=== PATIENT | female | born 1950 | race Caucasian/White ===

== ENCOUNTER 2017-11-24 04:34 | Inpatient (IN) | payer OTHER ==
[2017-11-24] MEDS ORDERED: LEVALBUTEROL (NEB) 1.25 MG/0.5 ML AMP (04:50)
[2017-11-24] MEDS ORDERED: IPRATROPIUM (NEB) 0.5 MG/2.5 ML AMP (04:50)
[2017-11-24] MEDS: IPRATROPIUM (NEB) 0.5 MG/2.5 ML AMP INH (05:03)
[2017-11-24] MEDS: LEVALBUTEROL (NEB) 1.25 MG/0.5 ML AMP INH (05:03)
[2017-11-24] MEDS: METHYLPREDNISOLONE 125 MG INJ IV (05:27)
[2017-11-24 05:28] LABS: ADD MAN DIFF? NO
[2017-11-24 05:30] LABS: BASOPHILS % 0.3 % (0.0-2.0); EOSINOPHILS # 0.1 10^3/ul (0.0-0.5); EOSINOPHILS % 1.7 % (0.0-7.0); HEMATOCRIT 33.4 % (37.0-47.0); HEMOGLOBIN 10.9 g/dl (12.0-16.0); LYMPHOCYTES # 1.4 10^3/ul (0.8-2.9); LYMPHOCYTES % 19.7 % (15.0-51.0); MEAN CORPUSCULAR HEMOGLOBIN 31.7 pg (29.0-33.0); MEAN CORPUSCULAR HGB CONC 32.6 g/dl (32.0-37.0); MEAN CORPUSCULAR VOLUME 97.1 fl (82.0-101.0); MONOCYTE # 0.5 10^3/ul (0.3-0.9); MONOCYTES % 7.7 % (0.0-11.0); NEUTROPHIL # 4.8 10^3/ul (1.6-7.5); NEUTROPHILS % 69.6 % (39.0-77.0); PLATELET COUNT 248 10^3/UL (140-415); RED BLOOD COUNT 3.44 10^6/ul (4.20-5.40); RED CELL DISTRIBUTION WIDTH 15.2 % (11.5-14.5)
[2017-11-24 05:30] LABS: WHITE BLOOD COUNT 6.9 10^3/ul (4.8-10.8)
[2017-11-24] MEDS: MAGNESIUM SULFATE 2 GM/50 ML 50 ML IVPB (05:38)
[2017-11-24 05:49] LABS: INR 0.85; PROTIME 11.7 Sec (11.9-14.9); PT RATIO 0.9
[2017-11-24 05:50] LABS: LACTIC ACID 0.9 mmol/L (0.5-2.0)
[2017-11-24 05:50] LABS: PARTIAL THROMBOPLASTIN TIME 26.6 Sec (25.0-35.0)
[2017-11-24 05:52] LABS: ALANINE AMINOTRANSFERASE 31 IU/L (13-69); ALBUMIN/GLOBULIN RATIO 1.25; ALKALINE PHOSPHATASE 77 IU/L (42-121); ANION GAP 9 (8-16); ASPARTATE AMINO TRANSFERASE 17 IU/L (15-46); BILIRUBIN,INDIRECT 0.5 mg/dl (0-1.1); BILIRUBIN,TOTAL 0.5 mg/dl (0.2-1.3); BLOOD UREA NITROGEN 8 mg/dl (7-20); CALCIUM 8.2 mg/dl (8.4-10.2); CARBON DIOXIDE 34 mmol/L (21-31); CHLORIDE 100 mmol/L (97-110); CREATININE 0.44 mg/dl (0.44-1.00); GLUCOSE 93 mg/dl (70-220); SODIUM 139 mmol/L (135-144); TOTAL PROTEIN 5.4 g/dl (6.1-8.1)
[2017-11-24 06:02] LABS: TROPONIN-I 0.018 ng/ml (0.000-0.120)
[2017-11-24] MEDS: LEVOFLOXACIN 750MG/D5W (PMX) 150 ML IVPB (06:07)
[2017-11-24 07:06] LABS: ADD UMIC NO; UR ASCORBIC ACID NEGATIVE (NEGATIVE); UR BILIRUBIN (Dip) NEGATIVE (NEGATIVE); UR BLOOD (Dip) NEGATIVE (NEGATIVE); UR CLARITY CLEAR (CLEAR); UR COLOR YELLOW (YELLOW); UR GLUCOSE (Dip) NEGATIVE (NEGATIVE); UR KETONES (Dip) NEGATIVE (NEGATIVE); UR LEUKOCYTE ESTERASE (Dip) NEGATIVE Leu/ul (NEGATIVE); UR NITRITE (Dip) NEGATIVE (NEGATIVE); UR SPECIFIC GRAVITY (Dip) 1.008 (1.003-1.030); UR TOTAL PROTEIN (Dip) NEGATIVE (NEGATIVE); UR UROBILINOGEN (Dip) NEGATIVE (NEGATIVE)
[2017-11-24] MEDS ORDERED: SALMETEROL/FLUTICASONE 100/50 INHA INH (09:00)
[2017-11-24] MEDS ORDERED: ALBUTEROL HFA 8 GM INHALER INH (09:00)
[2017-11-24] MEDS: ARFORMOTEROL TARTRATE 15MCG/2 ML AMP INH ×2 (09:45→20:21)
[2017-11-24] MEDS: BUDESONIDE (NEB) 0.5MG/2ML AMP INH ×2 (09:45→20:12)
[2017-11-24] MEDS: TIOTROPIUM 18 MCG CAPSULE INHA DEV INH (15:06)
[2017-11-24] MEDS ORDERED: morphine 2 MG INJ IV (16:00)
[2017-11-24] MEDS ORDERED: NACL 0.9% 3 ML SYG IV (16:00)
[2017-11-24] MEDS ORDERED: MAGNESIUM HYDROXIDE 30ML CUP PO (16:00)
[2017-11-24] MEDS ORDERED: HYDROCODONE/APAP (5/325) TAB PO (16:00)
[2017-11-24] MEDS ORDERED: DOCUSATE SODIUM 100 MG CAP PO (16:00)
[2017-11-24] MEDS ORDERED: NITROGLYCERIN (SL) 0.4 MG TAB SL (16:00)
[2017-11-24] MEDS ORDERED: ZOLPIDEM 5 MG TAB PO ×2 (16:00)
[2017-11-24] MEDS ORDERED: ACETAMINOPHEN 325 MG TAB PO (16:00)
[2017-11-24] MEDS ORDERED: ONDANSETRON 4 MG INJ IV (16:00)
[2017-11-24 19:31] LABS: TROPONIN-I 0.012 ng/ml (0.000-0.120)
[2017-11-24] MEDS: traZODone 50 MG TAB PO (20:39)
[2017-11-24] MEDS ORDERED: VANCOMYCIN IV PER PHARMACY XX (22:00)
[2017-11-24] MEDS ORDERED: VANCOMYCIN 1.25 GM in SOD CHLORIDE 0.9% 250 ML IVPB (22:30)
[2017-11-24] MEDS: VANCOMYCIN 1.25 GM in SOD CHLORIDE 0.9% 250 ML IVPB (23:30)
[2017-11-25] MEDS: ALBUTEROL/IPRATROPIUM (NEB) 3 ML AMP HHN ×2 (00:13→05:48)
[2017-11-25 01:17] LABS: TROPONIN-I < 0.010 ng/ml (0.000-0.120)
[2017-11-25] MEDS: BUDESONIDE (NEB) 0.5MG/2ML AMP INH (08:00)
[2017-11-25] MEDS: FAMOTIDINE 20 MG TAB PO ×2 (08:30→08:35)
[2017-11-25] MEDS: predniSONE 5 MG TAB PO (08:30)
[2017-11-25] MEDS: MONTELUKAST 10 MG TAB PO (08:30)
[2017-11-25] MEDS: traZODone 50 MG TAB PO ×2 (08:30→12:28)
[2017-11-25] MEDS: FUROSEMIDE 20 MG TAB PO (08:31)
[2017-11-25] MEDS: ARFORMOTEROL TARTRATE 15MCG/2 ML AMP INH (09:00)
[2017-11-25 09:11] LABS: ADD MAN DIFF? NO
[2017-11-25 09:21] LABS: BASOPHILS % 0.1 % (0.0-2.0); EOSINOPHILS % 0.3 % (0.0-7.0); HEMATOCRIT 36.3 % (37.0-47.0); HEMOGLOBIN 11.6 g/dl (12.0-16.0); LYMPHOCYTES # 1.2 10^3/ul (0.8-2.9); LYMPHOCYTES % 12.4 % (15.0-51.0); MEAN CORPUSCULAR HEMOGLOBIN 31.1 pg (29.0-33.0); MEAN CORPUSCULAR VOLUME 97.3 fl (82.0-101.0); MEAN PLATELET VOLUME 9.3 fl (7.4-10.4); MONOCYTE # 0.8 10^3/ul (0.3-0.9); MONOCYTES % 7.9 % (0.0-11.0); NEUTROPHIL # 7.7 10^3/ul (1.6-7.5); NEUTROPHILS % 78.7 % (39.0-77.0); PLATELET COUNT 282 10^3/UL (140-415); RED BLOOD COUNT 3.73 10^6/ul (4.20-5.40); RED CELL DISTRIBUTION WIDTH 15.2 % (11.5-14.5)
[2017-11-25 09:21] LABS: WHITE BLOOD COUNT 9.8 10^3/ul (4.8-10.8)
[2017-11-25 09:30] LABS: HEMOGLOBIN A1C 5.5 % (0-5.9)
[2017-11-25 09:37] LABS: ANION GAP 9 (8-16); BLOOD UREA NITROGEN 13 mg/dl (7-20); CALCIUM 8.5 mg/dl (8.4-10.2); CARBON DIOXIDE 32 mmol/L (21-31); CHLORIDE 104 mmol/L (97-110); CHOL/HDL RATIO 2.7 RATIO; CHOLESTEROL 203 mg/dl (100-200); CREATININE 0.42 mg/dl (0.44-1.00); GLUCOSE 96 mg/dl (70-220); HDL CHOLESTEROL 74 mg/dl (35-98); LDL CHOLESTEROL,CALCULATED 117 mg/dl; PHOSPHORUS 3.6 mg/dl (2.5-4.9); POTASSIUM 4.3 mmol/L (3.5-5.1); SODIUM 141 mmol/L (135-144); TRIGLYCERIDES 61 mg/dl (0-149)
[2017-11-25] MEDS: TIOTROPIUM 18 MCG CAPSULE INHA DEV INH (10:48)
[2017-11-25] MEDS: ALBUTEROL 0.083% (NEB) 2.5 MG/3 ML AMP HHN (14:08)
[2017-11-25] MEDS: NICOTINE (21 MG/24 HR) PATCH TRANSDERM (15:48)
[2017-11-25] MEDS ORDERED: VANCOMYCIN 750 MG in DEXTROSE 5% 150 ML IVPB (18:00)
[2017-11-25] MEDS ORDERED: VANCOMYCIN 1 GM 250 ML IVPB (22:00)
[2017-11-26] MEDS ORDERED: ASPIRIN 81 MG TAB PO (09:00)
== END 2017-11-25 18:00 | disposition home health service (06) | DRG 192 ==
LOC: E/R 04:34 → TEL 05:54
DX: J44.1 Chronic obstructive pulmonary disease with (acute) exacerbation (principal); Z72.0 Tobacco use; R07.89 Other chest pain; D63.8 Anemia in other chronic diseases classified elsewhere
CPT/HCPCS: 36415; 71045; 80048; 80053; 80061; 81003; 83036; 83605; 83735; 84100; 84484; 85025; 85610; 85730; 87040; 87086; 93005; 94640; 94644; 94664; 96374; 96375; 97161; 99291-25

== ENCOUNTER 2018-01-13 17:45 | Inpatient (IN) | payer OTHER ==
[2018-01-13] MEDS: ALBUTEROL 0.5% (NEB) 2.5 MG/0.5 ML AMP INH (18:06)
[2018-01-13 18:10] LABS: ADD MAN DIFF? NO
[2018-01-13 18:14] LABS: ABNORMAL IP MESSAGE 1; BASOPHILS % 0.2 % (0.0-2.0); HEMATOCRIT 36.8 % (37.0-47.0); HEMOGLOBIN 11.4 g/dl (12.0-16.0); LYMPHOCYTES # 0.5 10^3/ul (0.8-2.9); LYMPHOCYTES % 5.2 % (15.0-51.0); MEAN CORPUSCULAR HEMOGLOBIN 30.6 pg (29.0-33.0); MEAN CORPUSCULAR VOLUME 98.7 fl (82.0-101.0); MEAN PLATELET VOLUME 8.8 fl (7.4-10.4); MONOCYTE # 0.1 10^3/ul (0.3-0.9); MONOCYTES % 1.3 % (0.0-11.0); NEUTROPHIL # 8.9 10^3/ul (1.6-7.5); NEUTROPHILS % 92.9 % (39.0-77.0); PLATELET COUNT 326 10^3/UL (140-415); POSITIVE DIFF @See below; RED BLOOD COUNT 3.73 10^6/ul (4.20-5.40)
[2018-01-13 18:14] LABS: WHITE BLOOD COUNT 9.6 10^3/ul (4.8-10.8)
[2018-01-13] MEDS: AZITHROMYCIN 500MG/NS (PMX) 250 ML IVPB (18:19)
[2018-01-13] MEDS: METHYLPREDNISOLONE 125 MG INJ IV (18:19)
[2018-01-13 18:37] LABS: ANION GAP 9 (8-16); BLOOD UREA NITROGEN 12 mg/dl (7-20); CARBON DIOXIDE 35 mmol/L (21-31); CHLORIDE 101 mmol/L (97-110); CREATININE 0.49 mg/dl (0.44-1.00); GLUCOSE 131 mg/dl (70-220); POTASSIUM 4.6 mmol/L (3.5-5.1); SODIUM 140 mmol/L (135-144)
[2018-01-13 18:49] LABS: TROPONIN-I < 0.010 ng/ml (0.000-0.120)
[2018-01-13] MEDS ORDERED: ACETAMINOPHEN 325 MG TAB PO (19:30)
[2018-01-13] MEDS ORDERED: ONDANSETRON 4 MG INJ IV (19:30)
[2018-01-14] MEDS: ALBUTEROL/IPRATROPIUM (NEB) 3 ML AMP HHN ×3 (02:49→20:29)
[2018-01-14] MEDS ORDERED: NON-FORMULARY/PATIENT OWN MED (Salmeterol Xinaf-Fluticasone* (Advair*) 1 INH) INHALATION (04:30)
[2018-01-14] MEDS: ALBUTEROL HFA 8 GM INHALER INH ×5 (05:00→20:53)
[2018-01-14 05:13] LABS: ADD MAN DIFF? NO
[2018-01-14 05:18] LABS: ABNORMAL IP MESSAGE 1; BASOPHILS % 0.1 % (0.0-2.0); HEMATOCRIT 36.6 % (37.0-47.0); HEMOGLOBIN 11.3 g/dl (12.0-16.0); LYMPHOCYTES # 0.5 10^3/ul (0.8-2.9); LYMPHOCYTES % 6.5 % (15.0-51.0); MEAN CORPUSCULAR HGB CONC 30.9 g/dl (32.0-37.0); MEAN CORPUSCULAR VOLUME 97.1 fl (82.0-101.0); MEAN PLATELET VOLUME 9.1 fl (7.4-10.4); MONOCYTE # 0.2 10^3/ul (0.3-0.9); MONOCYTES % 3.3 % (0.0-11.0); NEUTROPHIL # 6.4 10^3/ul (1.6-7.5); NEUTROPHILS % 89.7 % (39.0-77.0); PLATELET COUNT 329 10^3/UL (140-415); RED BLOOD COUNT 3.77 10^6/ul (4.20-5.40); RED CELL DISTRIBUTION WIDTH 13.8 % (11.5-14.5)
[2018-01-14 05:18] LABS: WHITE BLOOD COUNT 7.2 10^3/ul (4.8-10.8)
[2018-01-14 05:25] LABS: POSITIVE DIFF @See below
[2018-01-14] MEDS: ACETAMINOPHEN 325 MG TAB PO (05:38)
[2018-01-14 05:42] LABS: ALANINE AMINOTRANSFERASE 29 IU/L (13-69); ALBUMIN 4.1 g/dl (3.3-4.9); ALBUMIN/GLOBULIN RATIO 1.78; ALKALINE PHOSPHATASE 53 IU/L (42-121); ANION GAP 10 (8-16); ASPARTATE AMINO TRANSFERASE 21 IU/L (15-46); BILIRUBIN,INDIRECT 0.3 mg/dl (0-1.1); BILIRUBIN,TOTAL 0.3 mg/dl (0.2-1.3); BLOOD UREA NITROGEN 17 mg/dl (7-20); CALCIUM 8.9 mg/dl (8.4-10.2); CARBON DIOXIDE 31 mmol/L (21-31); CHLORIDE 102 mmol/L (97-110); GLUCOSE 116 mg/dl (70-220); PHOSPHORUS 3.6 mg/dl (2.5-4.9); POTASSIUM 4.3 mmol/L (3.5-5.1); SODIUM 139 mmol/L (135-144); TOTAL PROTEIN 6.4 g/dl (6.1-8.1)
[2018-01-14] MEDS: FUROSEMIDE 20 MG TAB PO (06:00)
[2018-01-14] MEDS: FLUTICASONE/VILANTEROL 100-25 INH (06:01)
[2018-01-14] MEDS: FAMOTIDINE 20 MG TAB PO (09:00)
[2018-01-14] MEDS: SUMATRIPTAN 6 MG/0.5 ML INJ SC ×2 (09:30→18:45)
[2018-01-14] MEDS: METHYLPREDNISOLONE 125 MG INJ IV (09:34)
[2018-01-14] MEDS: traZODone 50 MG TAB PO ×3 (09:36→20:46)
[2018-01-14] MEDS: GABAPENTIN 100 MG CAP PO ×3 (09:36→20:47)
[2018-01-14] MEDS: ONDANSETRON 4 MG INJ IV ×2 (10:03→20:46)
[2018-01-14] MEDS: TIOTROPIUM 18 MCG CAPSULE INHA DEV INH (20:53)
[2018-01-14] MEDS: MONTELUKAST 10 MG TAB PO (20:56)
[2018-01-15] MEDS: ALBUTEROL HFA 8 GM INHALER INH ×6 (01:00→21:49)
[2018-01-15] MEDS: ALBUTEROL/IPRATROPIUM (NEB) 3 ML AMP HHN ×4 (01:17→16:50)
[2018-01-15] MEDS: ONDANSETRON 4 MG INJ IV ×3 (02:42→16:25)
[2018-01-15] MEDS: SUMATRIPTAN 6 MG/0.5 ML INJ SC (02:47)
[2018-01-15] MEDS: SUMATRIPTAN 50 MG TAB PO (03:58)
[2018-01-15 05:48] LABS: ADD MAN DIFF? NO
[2018-01-15 05:53] LABS: WHITE BLOOD COUNT 9.9 10^3/ul (4.8-10.8)
[2018-01-15 05:53] LABS: ABNORMAL IP MESSAGE 1; BASOPHILS % 0.1 % (0.0-2.0); HEMATOCRIT 34.4 % (37.0-47.0); HEMOGLOBIN 10.4 g/dl (12.0-16.0); LYMPHOCYTES # 0.4 10^3/ul (0.8-2.9); LYMPHOCYTES % 4.2 % (15.0-51.0); MEAN CORPUSCULAR HEMOGLOBIN 30.3 pg (29.0-33.0); MEAN CORPUSCULAR HGB CONC 30.2 g/dl (32.0-37.0); MEAN CORPUSCULAR VOLUME 100.3 fl (82.0-101.0); MEAN PLATELET VOLUME 10.6 fl (7.4-10.4); MONOCYTE # 0.5 10^3/ul (0.3-0.9); MONOCYTES % 5.2 % (0.0-11.0); NEUTROPHIL # 8.9 10^3/ul (1.6-7.5); NEUTROPHILS % 90.2 % (39.0-77.0); PLATELET COUNT 275 10^3/UL (140-415); RED BLOOD COUNT 3.43 10^6/ul (4.20-5.40); RED CELL DISTRIBUTION WIDTH 13.9 % (11.5-14.5)
[2018-01-15] MEDS: FUROSEMIDE 20 MG TAB PO (06:00)
[2018-01-15 06:12] LABS: ANION GAP 10 (8-16); BLOOD UREA NITROGEN 17 mg/dl (7-20); CALCIUM 8.7 mg/dl (8.4-10.2); CARBON DIOXIDE 29 mmol/L (21-31); CHLORIDE 104 mmol/L (97-110); CREATININE 0.58 mg/dl (0.44-1.00); GLUCOSE 114 mg/dl (70-220); POTASSIUM 4.7 mmol/L (3.5-5.1); SODIUM 138 mmol/L (135-144)
[2018-01-15 06:12] LABS: PHOSPHORUS 3.4 mg/dl (2.5-4.9)
[2018-01-15 06:20] LABS: POSITIVE DIFF @See below
[2018-01-15] MEDS: FAMOTIDINE 20 MG TAB PO (09:00)
[2018-01-15] MEDS: traZODone 50 MG TAB PO ×3 (09:59→21:47)
[2018-01-15] MEDS: METHYLPREDNISOLONE 125 MG INJ IV (09:59)
[2018-01-15] MEDS ORDERED: SUMATRIPTAN 6 MG/0.5 ML INJ SC (10:00)
[2018-01-15] MEDS: GABAPENTIN 100 MG CAP PO ×3 (10:00→21:47)
[2018-01-15] MEDS: FLUTICASONE/VILANTEROL 100-25 INH (10:01)
[2018-01-15] MEDS: SUMATRIPTAN 25 MG TAB PO ×2 (10:40→17:23)
[2018-01-15] MEDS: MONTELUKAST 10 MG TAB PO (21:48)
[2018-01-15] MEDS: TIOTROPIUM 18 MCG CAPSULE INHA DEV INH (21:50)
[2018-01-16] MEDS: ALBUTEROL/IPRATROPIUM (NEB) 3 ML AMP HHN (00:08)
[2018-01-16] MEDS: ALBUTEROL HFA 8 GM INHALER INH ×3 (01:00→08:12)
[2018-01-16] MEDS: SUMATRIPTAN 50 MG TAB PO (04:49)
[2018-01-16] MEDS: FUROSEMIDE 20 MG TAB PO (05:30)
[2018-01-16 05:37] LABS: ADD MAN DIFF? NO
[2018-01-16 05:50] LABS: BASOPHILS % 0.1 % (0.0-2.0); HEMATOCRIT 35.7 % (37.0-47.0); HEMOGLOBIN 10.7 g/dl (12.0-16.0); LYMPHOCYTES # 1.7 10^3/ul (0.8-2.9); MEAN CORPUSCULAR HEMOGLOBIN 30.1 pg (29.0-33.0); MEAN CORPUSCULAR VOLUME 100.6 fl (82.0-101.0); MEAN PLATELET VOLUME 9.5 fl (7.4-10.4); MONOCYTE # 0.9 10^3/ul (0.3-0.9); MONOCYTES % 8.2 % (0.0-11.0); NEUTROPHIL # 8.5 10^3/ul (1.6-7.5); NEUTROPHILS % 76.3 % (39.0-77.0); PLATELET COUNT 313 10^3/UL (140-415); RED BLOOD COUNT 3.55 10^6/ul (4.20-5.40); RED CELL DISTRIBUTION WIDTH 13.6 % (11.5-14.5)
[2018-01-16 05:50] LABS: WHITE BLOOD COUNT 11.1 10^3/ul (4.8-10.8)
[2018-01-16 06:09] LABS: PHOSPHORUS 2.7 mg/dl (2.5-4.9)
[2018-01-16 06:09] LABS: MAGNESIUM 1.9 mg/dl (1.7-2.5)
[2018-01-16 06:15] LABS: ANION GAP 8 (8-16); BLOOD UREA NITROGEN 16 mg/dl (7-20); CALCIUM 8.3 mg/dl (8.4-10.2); CARBON DIOXIDE 31 mmol/L (21-31); CHLORIDE 103 mmol/L (97-110); CREATININE 0.52 mg/dl (0.44-1.00); GLUCOSE 129 mg/dl (70-220); SODIUM 138 mmol/L (135-144)
[2018-01-16] MEDS: ONDANSETRON 4 MG INJ IV ×3 (08:03→21:27)
[2018-01-16] MEDS: FLUTICASONE/VILANTEROL 100-25 INH (08:08)
[2018-01-16] MEDS: METHYLPREDNISOLONE 125 MG INJ IV (08:09)
[2018-01-16] MEDS: traZODone 50 MG TAB PO ×3 (08:12→21:24)
[2018-01-16] MEDS: FAMOTIDINE 20 MG TAB PO (08:12)
[2018-01-16] MEDS: GABAPENTIN 100 MG CAP PO ×3 (08:12→21:24)
[2018-01-16] MEDS: MONTELUKAST 10 MG TAB PO (08:13)
[2018-01-16] MEDS: NICOTINE (21 MG/24 HR) PATCH TRANSDERM (11:42)
[2018-01-16] MEDS: ALBUTEROL 0.083% (NEB) 2.5 MG/3 ML AMP HHN ×3 (11:47→23:00)
[2018-01-16] MEDS ORDERED: ALBUTEROL HFA 8 GM INHALER INH (12:00)
[2018-01-16] MEDS: traMADol 50 MG TAB PO ×2 (12:02→19:12)
[2018-01-16] MEDS: TIOTROPIUM 18 MCG CAPSULE INHA DEV INH (21:41)
[2018-01-17] MEDS: traMADol 50 MG TAB PO ×4 (01:21→22:01)
[2018-01-17] MEDS: ALBUTEROL 0.083% (NEB) 2.5 MG/3 ML AMP HHN ×5 (03:01→19:57)
[2018-01-17] MEDS: ONDANSETRON 4 MG INJ IV ×2 (03:18→09:13)
[2018-01-17] MEDS: FUROSEMIDE 20 MG TAB PO (06:00)
[2018-01-17] MEDS: FAMOTIDINE 20 MG TAB PO (09:00)
[2018-01-17] MEDS: METHYLPREDNISOLONE 125 MG INJ IV (09:13)
[2018-01-17] MEDS: GABAPENTIN 100 MG CAP PO ×3 (09:13→20:34)
[2018-01-17] MEDS: traZODone 50 MG TAB PO ×3 (09:13→20:34)
[2018-01-17] MEDS: FLUTICASONE/VILANTEROL 100-25 INH (09:13)
[2018-01-17] MEDS: MONTELUKAST 10 MG TAB PO (09:14)
[2018-01-17] MEDS: NICOTINE (21 MG/24 HR) PATCH TRANSDERM (09:24)
[2018-01-17] MEDS: ONDANSETRON 4 MG TAB PO ×2 (16:21→21:35)
[2018-01-17] MEDS: ACETAMINOPHEN 325 MG TAB PO (20:30)
[2018-01-17] MEDS: TIOTROPIUM 18 MCG CAPSULE INHA DEV INH (20:38)
[2018-01-18] MEDS: traMADol 50 MG TAB PO ×2 (01:27→07:44)
[2018-01-18] MEDS: ALBUTEROL 0.083% (NEB) 2.5 MG/3 ML AMP HHN (03:31)
[2018-01-18] MEDS: FUROSEMIDE 20 MG TAB PO (05:40)
[2018-01-18] MEDS: ONDANSETRON 4 MG TAB PO (06:01)
[2018-01-18] MEDS: GABAPENTIN 100 MG CAP PO (09:23)
[2018-01-18] MEDS: MONTELUKAST 10 MG TAB PO (09:23)
[2018-01-18] MEDS: FLUTICASONE/VILANTEROL 100-25 INH (09:24)
[2018-01-18] MEDS: NICOTINE (21 MG/24 HR) PATCH TRANSDERM (09:26)
[2018-01-18] MEDS: FAMOTIDINE 20 MG TAB PO (09:26)
[2018-01-18] MEDS: traZODone 50 MG TAB PO (09:28)
[2018-01-18] MEDS: ONDANSETRON 4 MG INJ IV (11:54)
== END 2018-01-18 12:30 | disposition home health service (06) | DRG 192 ==
LOC: E/R 17:45 → MS1 19:17
DX: J44.1 Chronic obstructive pulmonary disease with (acute) exacerbation (principal); Z72.0 Tobacco use; I10 Essential (primary) hypertension; G43.909 Migraine, unspecified, not intractable, without status migrainosus; D64.9 Anemia, unspecified
CPT/HCPCS: 70450; 71045; 80048; 80053; 83735; 84100; 84484; 85025; 93005; 93970; 94640; 94644; 94664; 96374; 96375; 99285-25

== ENCOUNTER 2018-01-21 10:08 | Emergency (ER) | payer OTHER ==
[2018-01-21 10:53] LABS: ADD MAN DIFF? NO
[2018-01-21 10:55] LABS: BASOPHILS % 0.1 % (0.0-2.0); EOSINOPHILS % 0.1 % (0.0-7.0); HEMATOCRIT 42.5 % (37.0-47.0); HEMOGLOBIN 12.7 g/dl (12.0-16.0); LYMPHOCYTES # 1.4 10^3/ul (0.8-2.9); LYMPHOCYTES % 13.1 % (15.0-51.0); MEAN CORPUSCULAR HEMOGLOBIN 29.7 pg (29.0-33.0); MEAN CORPUSCULAR HGB CONC 29.9 g/dl (32.0-37.0); MEAN CORPUSCULAR VOLUME 99.5 fl (82.0-101.0); MEAN PLATELET VOLUME 8.7 fl (7.4-10.4); MONOCYTE # 0.9 10^3/ul (0.3-0.9); MONOCYTES % 8.3 % (0.0-11.0); NEUTROPHIL # 8.5 10^3/ul (1.6-7.5); PLATELET COUNT 340 10^3/UL (140-415); RED BLOOD COUNT 4.27 10^6/ul (4.20-5.40); RED CELL DISTRIBUTION WIDTH 13.3 % (11.5-14.5)
[2018-01-21 10:55] LABS: WHITE BLOOD COUNT 10.9 10^3/ul (4.8-10.8)
[2018-01-21 11:12] LABS: ANION GAP 9 (8-16); BLOOD UREA NITROGEN 11 mg/dl (7-20); CALCIUM 9.2 mg/dl (8.4-10.2); CARBON DIOXIDE 38 mmol/L (21-31); CHLORIDE 97 mmol/L (97-110); CREATININE 0.51 mg/dl (0.44-1.00); GLUCOSE 93 mg/dl (70-220); POTASSIUM 3.7 mmol/L (3.5-5.1); SODIUM 140 mmol/L (135-144)
[2018-01-21 11:22] LABS: INR 0.87; PROTIME 11.9 Sec (11.9-14.9); PT RATIO 0.9
[2018-01-21 11:23] LABS: PARTIAL THROMBOPLASTIN TIME 23.4 Sec (25.0-35.0)
[2018-01-21 11:24] LABS: B-TYPE NATRIURETIC PEPTIDE 230 PG/ML (0-125); TROPONIN-I 0.011 ng/ml (0.000-0.120)
[2018-01-21] MEDS: METHYLPREDNISOLONE 125 MG INJ IV (11:29)
[2018-01-21] MEDS: DIPHENHYDRAMINE 50 MG INJ IV (11:29)
[2018-01-21] MEDS: METOCLOPRAMIDE 10 MG INJ IV (11:33)
[2018-01-21] MEDS: ALBUTEROL 0.5% (NEB) 2.5 MG/0.5 ML AMP INH (11:42)
[2018-01-21] MEDS: IPRATROPIUM (NEB) 0.5 MG/2.5 ML AMP INH (11:42)
== END 2018-01-21 21:16 | disposition home or self-care (01) ==
LOC: E/R 10:08
DX: R62.7 Adult failure to thrive (principal); J44.9 Chronic obstructive pulmonary disease, unspecified; R06.00 Dyspnea, unspecified; R51 Headache; E87.2 Acidosis; R40.2142 Coma scale, eyes open, spontaneous, at arrival to emergency department; R40.2252 Coma scale, best verbal response, oriented, at arrival to emergency department; I10 Essential (primary) hypertension; J45.901 Unspecified asthma with (acute) exacerbation; F17.210 Nicotine dependence, cigarettes, uncomplicated; Z99.81 Dependence on supplemental oxygen
CPT/HCPCS: 36415; 71045; 80048; 83880; 84484; 85025; 85610; 85730; 93005; 94644; 96374; 96375; 99285-25

== ENCOUNTER 2018-02-11 10:26 | Emergency (ER) | payer OTHER ==
[2018-02-11] MEDS: ALBUTEROL 0.5% (NEB) 2.5 MG/0.5 ML AMP INH (11:26)
[2018-02-11] MEDS: IPRATROPIUM (NEB) 0.5 MG/2.5 ML AMP INH (11:27)
[2018-02-11 12:14] LABS: ADD MAN DIFF? NO
[2018-02-11 12:17] LABS: WHITE BLOOD COUNT 12.6 10^3/ul (4.8-10.8)
[2018-02-11 12:17] LABS: BASOPHILS % 0.1 % (0.0-2.0); HEMATOCRIT 36.8 % (37.0-47.0); HEMOGLOBIN 11.2 g/dl (12.0-16.0); LYMPHOCYTES # 0.8 10^3/ul (0.8-2.9); LYMPHOCYTES % 6.1 % (15.0-51.0); MEAN CORPUSCULAR HEMOGLOBIN 28.8 pg (29.0-33.0); MEAN CORPUSCULAR HGB CONC 30.4 g/dl (32.0-37.0); MEAN CORPUSCULAR VOLUME 94.6 fl (82.0-101.0); MEAN PLATELET VOLUME 8.7 fl (7.4-10.4); MONOCYTE # 1.1 10^3/ul (0.3-0.9); NEUTROPHIL # 10.6 10^3/ul (1.6-7.5); NEUTROPHILS % 84.2 % (39.0-77.0); PLATELET COUNT 323 10^3/UL (140-415); RED BLOOD COUNT 3.89 10^6/ul (4.20-5.40)
[2018-02-11] MEDS: METHYLPREDNISOLONE 125 MG INJ IV (12:31)
[2018-02-11 12:34] LABS: BLOOD UREA NITROGEN 21 mg/dl (7-20); CALCIUM 9.1 mg/dl (8.4-10.2); CHLORIDE 92 mmol/L (97-110); CREATININE 0.56 mg/dl (0.44-1.00); GLUCOSE 92 mg/dl (70-220); POTASSIUM 4.2 mmol/L (3.5-5.1); SODIUM 137 mmol/L (135-144)
[2018-02-11 12:46] LABS: TROPONIN-I < 0.012 ng/ml (0.000-0.120)
[2018-02-11 12:48] LABS: ANION GAP 7 (8-16); CARBON DIOXIDE 42 mmol/L (21-31)
[2018-02-11] MEDS: ALBUTEROL 0.083% (NEB) 2.5 MG/3 ML AMP HHN (19:09)
== END 2018-02-11 23:27 | disposition home or self-care (01) ==
LOC: E/R 10:26
DX: J44.1 Chronic obstructive pulmonary disease with (acute) exacerbation (principal); F17.200 Nicotine dependence, unspecified, uncomplicated; I10 Essential (primary) hypertension; F17.210 Nicotine dependence, cigarettes, uncomplicated; R40.2142 Coma scale, eyes open, spontaneous, at arrival to emergency department; R40.2362 Coma scale, best motor response, obeys commands, at arrival to emergency department; R40.2252 Coma scale, best verbal response, oriented, at arrival to emergency department
CPT/HCPCS: 36415; 71045; 80048; 84484; 85025; 93005; 94644; 94664; 96374; 99285-25

== ENCOUNTER 2018-03-08 16:41 | Emergency (ER) | payer OTHER ==
[2018-03-08 17:32] LABS: ADD MAN DIFF? NO
[2018-03-08 17:40] LABS: ANION GAP 9 (8-16); BLOOD UREA NITROGEN 13 mg/dl (7-20); CARBON DIOXIDE 30 mmol/L (21-31); CHLORIDE 102 mmol/L (97-110); GLUCOSE 90 mg/dl (70-220); POTASSIUM 3.7 mmol/L (3.5-5.1); SODIUM 137 mmol/L (135-144)
[2018-03-08 17:41] LABS: BASOPHIL # 0.1 10^3/ul (0.0-0.1); BASOPHILS % 1.1 % (0.0-2.0); EOSINOPHILS # 0.1 10^3/ul (0.0-0.5); EOSINOPHILS % 1.9 % (0.0-7.0); HEMATOCRIT 29.2 % (37.0-47.0); HEMOGLOBIN 9.1 g/dl (12.0-16.0); LYMPHOCYTES # 1.7 10^3/ul (0.8-2.9); LYMPHOCYTES % 36.2 % (15.0-51.0); MEAN CORPUSCULAR HEMOGLOBIN 27.4 pg (29.0-33.0); MEAN CORPUSCULAR HGB CONC 31.2 g/dl (32.0-37.0); MEAN PLATELET VOLUME 8.6 fl (7.4-10.4); MONOCYTE # 0.7 10^3/ul (0.3-0.9); NEUTROPHIL # 2.1 10^3/ul (1.6-7.5); PLATELET COUNT 421 10^3/UL (140-415); RED BLOOD COUNT 3.32 10^6/ul (4.20-5.40); RED CELL DISTRIBUTION WIDTH 14.4 % (11.5-14.5)
[2018-03-08 17:41] LABS: WHITE BLOOD COUNT 4.7 10^3/ul (4.8-10.8)
[2018-03-08] MEDS: METOCLOPRAMIDE 10 MG INJ IV (17:45)
[2018-03-08] MEDS: DIPHENHYDRAMINE 50 MG INJ IV (17:45)
[2018-03-08] MEDS: METHYLPREDNISOLONE 125 MG INJ IV (17:45)
[2018-03-08] MEDS: HYDROmorphONE 1 MG/ML SYG IV (17:45)
[2018-03-08 17:51] LABS: TROPONIN-I < 0.012 ng/ml (0.000-0.120)
[2018-03-08] MEDS: ALBUTEROL 0.5% (NEB) 2.5 MG/0.5 ML AMP INH (17:58)
== END 2018-03-08 21:00 | disposition home or self-care (01) ==
LOC: E/R 16:41
DX: J44.1 Chronic obstructive pulmonary disease with (acute) exacerbation (principal); R40.2142 Coma scale, eyes open, spontaneous, at arrival to emergency department; R40.2252 Coma scale, best verbal response, oriented, at arrival to emergency department; R40.2362 Coma scale, best motor response, obeys commands, at arrival to emergency department; I10 Essential (primary) hypertension; F17.210 Nicotine dependence, cigarettes, uncomplicated; G43.909 Migraine, unspecified, not intractable, without status migrainosus
CPT/HCPCS: 70450; 71045; 80048; 84484; 85025; 93005; 94644; 96374; 96375; 99285-25

== ENCOUNTER 2018-03-10 00:27 | Emergency (ER) | payer OTHER ==
[2018-03-10 01:49] LABS: ADD MAN DIFF? NO
[2018-03-10 01:50] LABS: BASOPHILS % 0.3 % (0.0-2.0); EOSINOPHILS % 0.1 % (0.0-7.0); HEMATOCRIT 29.3 % (37.0-47.0); HEMOGLOBIN 9.1 g/dl (12.0-16.0); LYMPHOCYTES # 1.9 10^3/ul (0.8-2.9); LYMPHOCYTES % 23.7 % (15.0-51.0); MEAN CORPUSCULAR HEMOGLOBIN 27.2 pg (29.0-33.0); MEAN CORPUSCULAR HGB CONC 31.1 g/dl (32.0-37.0); MEAN CORPUSCULAR VOLUME 87.5 fl (82.0-101.0); MEAN PLATELET VOLUME 8.9 fl (7.4-10.4); MONOCYTES % 11.9 % (0.0-11.0); NEUTROPHIL # 5.1 10^3/ul (1.6-7.5); NEUTROPHILS % 63.7 % (39.0-77.0); PLATELET COUNT 457 10^3/UL (140-415); RED BLOOD COUNT 3.35 10^6/ul (4.20-5.40); RED CELL DISTRIBUTION WIDTH 14.6 % (11.5-14.5)
[2018-03-10 02:11] LABS: LACTIC ACID 0.6 mmol/L (0.5-2.0)
[2018-03-10 02:11] LABS: PT RATIO 0.9
[2018-03-10 02:12] LABS: ALANINE AMINOTRANSFERASE 30 IU/L (13-69); ALBUMIN 3.5 g/dl (3.3-4.9); ALBUMIN/GLOBULIN RATIO 1.45; ALKALINE PHOSPHATASE 57 IU/L (42-121); ANION GAP 10 (8-16); ASPARTATE AMINO TRANSFERASE 29 IU/L (15-46); BILIRUBIN,INDIRECT 0.1 mg/dl (0-1.1); BILIRUBIN,TOTAL 0.1 mg/dl (0.2-1.3); BLOOD UREA NITROGEN 20 mg/dl (7-20); CARBON DIOXIDE 29 mmol/L (21-31); CHLORIDE 103 mmol/L (97-110); CREATININE 0.71 mg/dl (0.44-1.00); GLUCOSE 99 mg/dl (70-220); POTASSIUM 3.4 mmol/L (3.5-5.1); SODIUM 139 mmol/L (135-144); TOTAL PROTEIN 5.9 g/dl (6.1-8.1)
[2018-03-10 02:22] LABS: TROPONIN-I < 0.012 ng/ml (0.000-0.120)
[2018-03-10 02:53] LABS: AADO2 Arterial 70.1 mmHg (7.0-24.0); Allen Test ACCEPTAB; Arterial Base Excess 3.5 mmol/L (-3.0-3); Arterial Blood Gas Oxygen Sat 96.7 mmHG (95.0-98.0); Arterial COHb 2.8 % (0.0-3.0); Arterial Fraction of Oxyhgb 93.9 % (93.0-99.0); Arterial HCO3 27.9 mmol/L (22.0-26.0); Arterial MetHb 0.1 % (0.0-1.5); Arterial Total Hemglobin 9.6 g/dl (12.0-18.0); Arterial pCO2 41.7 mmhg (35-45); MODE NASAL CANNULA; Site Right Radial
[2018-03-10 03:01] LABS: INR 0.85; PARTIAL THROMBOPLASTIN TIME 26.8 Sec (25.0-35.0); PROTIME 11.7 Sec (11.9-14.9)
[2018-03-10] MEDS: POTASSIUM CHLORIDE (SR) 20 MEQ TAB PO (04:05)
[2018-03-10] MEDS: ONDANSETRON (ODT) 4 MG TAB ODT (10:31)
== END 2018-03-10 21:45 | disposition home or self-care (01) ==
LOC: E/R 21:45
DX: J44.9 Chronic obstructive pulmonary disease, unspecified (principal); M25.512 Pain in left shoulder; E87.6 Hypokalemia; D64.9 Anemia, unspecified; I10 Essential (primary) hypertension; R42 Dizziness and giddiness; Z87.891 Personal history of nicotine dependence
CPT/HCPCS: 36415; 36600; 70450; 71045; 73030; 80053; 82803; 83605; 84484; 85025; 85610; 85730; 87040; 93005; 99285-25

== ENCOUNTER 2018-06-15 19:02 | Inpatient (IN) | payer OTHER ==
[2018-06-15 20:35] LABS: WHITE BLOOD COUNT 6.6 10^3/ul (4.8-10.8)
[2018-06-15 20:35] LABS: ABNORMAL IP MESSAGE 1; HEMATOCRIT 23.5 % (37.0-47.0); MEAN CORPUSCULAR HEMOGLOBIN 25.1 pg (29.0-33.0); MEAN CORPUSCULAR HGB CONC 28.5 g/dl (32.0-37.0); MEAN PLATELET VOLUME 8.6 fl (7.4-10.4); PLATELET COUNT 293 10^3/UL (140-415); RED BLOOD COUNT 2.67 10^6/ul (4.20-5.40); RED CELL DISTRIBUTION WIDTH 17.5 % (11.5-14.5)
[2018-06-15] MEDS: ALBUTEROL 0.5% (NEB) 2.5 MG/0.5 ML AMP INH (20:38)
[2018-06-15] MEDS: IPRATROPIUM (NEB) 0.5 MG/2.5 ML AMP INH (20:39)
[2018-06-15] MEDS: SOD CHLORIDE 0.9% 500 ML IV (20:41)
[2018-06-15] MEDS: METHYLPREDNISOLONE 125 MG INJ IV (20:41)
[2018-06-15 20:47] LABS: ADD MAN DIFF? YES; HEMOGLOBIN 6.7 g/dl (12.0-16.0); POSITIVE DIFF @See below
[2018-06-15 20:53] LABS: ALANINE AMINOTRANSFERASE 37 IU/L (13-69); ALBUMIN/GLOBULIN RATIO 1.42; ALKALINE PHOSPHATASE 56 IU/L (42-121); ASPARTATE AMINO TRANSFERASE 18 IU/L (15-46); BILIRUBIN,INDIRECT 0.2 mg/dl (0-1.1); BILIRUBIN,TOTAL 0.2 mg/dl (0.2-1.3); BLOOD UREA NITROGEN 18 mg/dl (7-20); CALCIUM 8.1 mg/dl (8.4-10.2); CHLORIDE 95 mmol/L (97-110); CREATININE 0.46 mg/dl (0.44-1.00); Estimated GFR > 60 mL/min (>60); GLUCOSE 91 mg/dl (70-220); POTASSIUM 4.1 mmol/L (3.5-5.1); SODIUM 141 mmol/L (135-144); TOTAL PROTEIN 5.1 g/dl (6.1-8.1)
[2018-06-15 21:03] LABS: ANION GAP 4 (5-13)
[2018-06-15 21:04] LABS: CARBON DIOXIDE 42 mmol/L (21-31); TROPONIN-I < 0.012 ng/ml (0.000-0.120)
[2018-06-15] MEDS ORDERED: NACL 0.9% 3 ML SYG IV (21:30)
[2018-06-15 22:11] LABS: ANISOCYTOSIS 2+ (0-0); BAND NEUTROPHILS #M 0.1 10^3/ul (0.0-0.6); BAND NEUTROPHILS % (M) 2 % (0-4); BASOPHILS % (M) 1 % (0-2); EOSINOPHILS % (M) 2 % (0-7); HYPOCHROMASIA 2+ (0-0); LYMPHOCYTES #M 1.7 10^3/ul (0.8-2.9); LYMPHOCYTES % (M) 27 % (15-51); MICROCYTOSIS 1+ (0-0); MONOCYTE #M 0.3 10^3/ul (0.3-0.9); MONOCYTES % (M) 6 % (0-11); PLATELET ESTIMATE NORMAL; POLYCHROMASIA 3+ (0-0); SEGMENTED NEUTROPHILS (M) % 61 % (39-77); SMUDGE%M 2 % (0-0)
[2018-06-15] MEDS: HYDROCODONE/APAP (5/325) TAB PO (23:03)
[2018-06-15] MEDS: ALPRAZOLAM 0.25 MG TAB PO (23:25)
[2018-06-16] MEDS: HYDROCODONE/APAP (5/325) TAB PO ×2 (03:15→23:49)
[2018-06-16] MEDS: ALBUTEROL/IPRATROPIUM (NEB) 3 ML AMP HHN ×6 (04:30→21:03)
[2018-06-16 05:20] LABS: ADD MAN DIFF? NO
[2018-06-16 05:46] LABS: ABNORMAL IP MESSAGE 1; HEMATOCRIT 24.7 % (37.0-47.0); LYMPHOCYTES # 0.2 10^3/ul (0.8-2.9); MEAN CORPUSCULAR HEMOGLOBIN 25.2 pg (29.0-33.0); MEAN CORPUSCULAR HGB CONC 28.3 g/dl (32.0-37.0); MEAN CORPUSCULAR VOLUME 88.8 fl (82.0-101.0); MEAN PLATELET VOLUME 9.3 fl (7.4-10.4); MONOCYTES % 0.2 % (0.0-11.0); NEUTROPHIL # 6.2 10^3/ul (1.6-7.5); NEUTROPHILS % 96.5 % (39.0-77.0); PLATELET COUNT 305 10^3/UL (140-415); RED BLOOD COUNT 2.78 10^6/ul (4.20-5.40); RED CELL DISTRIBUTION WIDTH 17.2 % (11.5-14.5)
[2018-06-16 05:46] LABS: WHITE BLOOD COUNT 6.4 10^3/ul (4.8-10.8)
[2018-06-16 05:50] LABS: POSITIVE DIFF @See below
[2018-06-16 06:05] LABS: IRON 16 ug/dl (35-150)
[2018-06-16 06:15] LABS: % IRON SATURATION 4 % SAT (22-52); TOTAL IRON BINDING CAPACITY 389 ug/dl (241-421)
[2018-06-16 06:16] LABS: HEMOGLOBIN A1C 5.5 % (0-5.9)
[2018-06-16 06:18] LABS: ALANINE AMINOTRANSFERASE 32 IU/L (13-69); ALBUMIN 3.1 g/dl (3.3-4.9); ALBUMIN/GLOBULIN RATIO 1.47; ALKALINE PHOSPHATASE 53 IU/L (42-121); ASPARTATE AMINO TRANSFERASE 18 IU/L (15-46); BILIRUBIN,INDIRECT 0.1 mg/dl (0-1.1); BILIRUBIN,TOTAL 0.1 mg/dl (0.2-1.3); BLOOD UREA NITROGEN 18 mg/dl (7-20); CALCIUM 8.3 mg/dl (8.4-10.2); CHLORIDE 95 mmol/L (97-110); CHOL/HDL RATIO 2.4 RATIO; CHOLESTEROL 178 mg/dl (100-200); CREATININE 0.43 mg/dl (0.44-1.00); Estimated GFR > 60 mL/min (>60); GLUCOSE 204 mg/dl (70-220); HDL CHOLESTEROL 72 mg/dl (35-98); LDL CHOLESTEROL,CALCULATED 98 mg/dl; MAGNESIUM 1.9 mg/dl (1.7-2.5); POTASSIUM 4.4 mmol/L (3.5-5.1); SODIUM 139 mmol/L (135-144); TOTAL PROTEIN 5.2 g/dl (6.1-8.1); TRIGLYCERIDES 40 mg/dl (0-149)
[2018-06-16 06:25] LABS: ANION GAP 5 (5-13)
[2018-06-16 06:26] LABS: FERRITIN 23.1 ng/ml (11.1-264.0)
[2018-06-16 06:29] LABS: CARBON DIOXIDE 39 mmol/L (21-31)
[2018-06-16 06:30] LABS: THYROID STIMULATING HORMONE 0.303 MIU/L (0.465-4.680)
[2018-06-16] MEDS: SOD CHLORIDE 0.9% 1,000 ML IV (06:37)
[2018-06-16] MEDS ORDERED: NON-FORMULARY/PATIENT OWN MED (Budesonide-Formoterol Fumarate* (Symbicort*) 2 PUFF) INHALATION (09:00)
[2018-06-16] MEDS: traZODone 50 MG TAB PO ×3 (09:21→20:28)
[2018-06-16] MEDS: GABAPENTIN 100 MG CAP PO ×3 (09:21→20:27)
[2018-06-16] MEDS: FLUTICASONE/VILANTEROL 200-25 INH DEVICE INH (09:21)
[2018-06-16] MEDS: LIDOCAINE 5% PATCH TD (09:22)
[2018-06-16] MEDS: ONDANSETRON 4 MG INJ IV ×2 (09:36→17:36)
[2018-06-16] MEDS: METHYLPREDNISOLONE 40 MG INJ IV ×2 (09:37→20:27)
[2018-06-16 11:33] LABS: OCCULT BLOOD STOOL POSITIVE (NEGATIVE)
[2018-06-16] MEDS: SOD FERRIC GLUC COMPLX 125 MG in SOD CHLORIDE 0.9% 100 ML IVPB (12:29)
[2018-06-16] MEDS: PANTOPRAZOLE 40 MG INJ IV (17:24)
[2018-06-16] MEDS: TIOTROPIUM 18 MCG CAPSULE INHA DEV INH (20:27)
[2018-06-16] MEDS: MONTELUKAST 10 MG TAB PO (20:41)
[2018-06-17] MEDS: ALBUTEROL/IPRATROPIUM (NEB) 3 ML AMP HHN ×6 (00:41→20:56)
[2018-06-17] MEDS: HYDROCODONE/APAP (5/325) TAB PO ×4 (05:09→20:49)
[2018-06-17] MEDS: PANTOPRAZOLE 40 MG INJ IV ×2 (05:09→17:00)
[2018-06-17 06:09] LABS: ADD MAN DIFF? NO
[2018-06-17 06:23] LABS: ABNORMAL IP MESSAGE 1; HEMATOCRIT 23.3 % (37.0-47.0); LYMPHOCYTES # 0.4 10^3/ul (0.8-2.9); MEAN CORPUSCULAR HEMOGLOBIN 25.1 pg (29.0-33.0); MEAN CORPUSCULAR HGB CONC 28.3 g/dl (32.0-37.0); MEAN CORPUSCULAR VOLUME 88.6 fl (82.0-101.0); MEAN PLATELET VOLUME 9.4 fl (7.4-10.4); MONOCYTE # 0.3 10^3/ul (0.3-0.9); MONOCYTES % 3.9 % (0.0-11.0); NEUTROPHIL # 7.8 10^3/ul (1.6-7.5); NEUTROPHILS % 90.5 % (39.0-77.0); PLATELET COUNT 309 10^3/UL (140-415); RED BLOOD COUNT 2.63 10^6/ul (4.20-5.40); RED CELL DISTRIBUTION WIDTH 17.3 % (11.5-14.5)
[2018-06-17 06:23] LABS: WHITE BLOOD COUNT 8.7 10^3/ul (4.8-10.8)
[2018-06-17 06:30] LABS: POSITIVE DIFF @See below
[2018-06-17 06:32] LABS: HEMOGLOBIN 6.6 g/dl (12.0-16.0)
[2018-06-17 06:54] LABS: ANION GAP 0 (5-13); BLOOD UREA NITROGEN 19 mg/dl (7-20); CALCIUM 8.4 mg/dl (8.4-10.2); CARBON DIOXIDE 38 mmol/L (21-31); CHLORIDE 100 mmol/L (97-110); CREATININE 0.44 mg/dl (0.44-1.00); GLUCOSE 149 mg/dl (70-220); POTASSIUM 4.6 mmol/L (3.5-5.1); SODIUM 138 mmol/L (135-144)
[2018-06-17] MEDS: METHYLPREDNISOLONE 40 MG INJ IV ×2 (08:36→20:49)
[2018-06-17] MEDS: FLUTICASONE/VILANTEROL 200-25 INH DEVICE INH (08:37)
[2018-06-17] MEDS: traZODone 50 MG TAB PO ×3 (08:37→20:51)
[2018-06-17] MEDS: GABAPENTIN 100 MG CAP PO ×3 (08:37→20:51)
[2018-06-17] MEDS: LIDOCAINE 5% PATCH TD (08:38)
[2018-06-17] MEDS: ONDANSETRON 4 MG INJ IV (08:39)
[2018-06-17] MEDS: SOD FERRIC GLUC COMPLX 125 MG in SOD CHLORIDE 0.9% 100 ML IVPB (12:45)
[2018-06-17] MEDS: MONTELUKAST 10 MG TAB PO (20:51)
[2018-06-17] MEDS: TIOTROPIUM 18 MCG CAPSULE INHA DEV INH (21:11)
[2018-06-17] MEDS: HYDROmorphONE 0.5 MG/0.5 ML SYG IV (23:26)
[2018-06-18] MEDS: ALBUTEROL/IPRATROPIUM (NEB) 3 ML AMP HHN ×6 (01:04→20:38)
[2018-06-18] MEDS: ONDANSETRON 4 MG INJ IV ×3 (01:11→21:47)
[2018-06-18] MEDS: PANTOPRAZOLE 40 MG INJ IV ×2 (05:52→18:03)
[2018-06-18] MEDS: HYDROmorphONE 0.5 MG/0.5 ML SYG IV ×3 (05:58→15:00)
[2018-06-18] MEDS: METHYLPREDNISOLONE 40 MG INJ IV ×2 (09:30→21:16)
[2018-06-18] MEDS: traZODone 50 MG TAB PO ×3 (09:30→21:17)
[2018-06-18] MEDS: GABAPENTIN 100 MG CAP PO ×3 (09:30→21:17)
[2018-06-18] MEDS: FLUTICASONE/VILANTEROL 200-25 INH DEVICE INH (09:44)
[2018-06-18] MEDS: SOD FERRIC GLUC COMPLX 125 MG in SOD CHLORIDE 0.9% 100 ML IVPB (12:33)
[2018-06-18] MEDS: LIDOCAINE 5% PATCH TD (12:33)
[2018-06-18] MEDS: HYDROCODONE/APAP (5/325) TAB PO (14:11)
[2018-06-18] MEDS ORDERED: NICOTINE POLACRILEX 2 MG GUM BUCCAL (14:30)
[2018-06-18] MEDS: ALPRAZOLAM 0.5 MG TAB PO (14:52)
[2018-06-18] MEDS: NICOTINE (7 MG/24 HR) PATCH TRANSDERM (16:25)
[2018-06-18] MEDS: MONTELUKAST 10 MG TAB PO (21:17)
[2018-06-18] MEDS: TIOTROPIUM 18 MCG CAPSULE INHA DEV INH (23:44)
[2018-06-19] MEDS: ALBUTEROL/IPRATROPIUM (NEB) 3 ML AMP HHN ×6 (00:30→19:51)
[2018-06-19] MEDS: HYDROmorphONE 0.5 MG/0.5 ML SYG IV ×2 (03:45→23:50)
[2018-06-19] MEDS: ONDANSETRON 4 MG INJ IV ×2 (05:08→18:38)
[2018-06-19] MEDS: PANTOPRAZOLE 40 MG INJ IV ×2 (06:20→18:01)
[2018-06-19 06:31] LABS: ADD MAN DIFF? NO
[2018-06-19 06:47] LABS: ABNORMAL IP MESSAGE 1; BASOPHILS % 0.1 % (0.0-2.0); HEMATOCRIT 29.4 % (37.0-47.0); HEMOGLOBIN 8.1 g/dl (12.0-16.0); LYMPHOCYTES # 0.4 10^3/ul (0.8-2.9); LYMPHOCYTES % 5.6 % (15.0-51.0); MEAN CORPUSCULAR HEMOGLOBIN 24.8 pg (29.0-33.0); MEAN CORPUSCULAR HGB CONC 27.6 g/dl (32.0-37.0); MEAN CORPUSCULAR VOLUME 89.9 fl (82.0-101.0); MEAN PLATELET VOLUME 9.3 fl (7.4-10.4); MONOCYTE # 0.2 10^3/ul (0.3-0.9); MONOCYTES % 2.2 % (0.0-11.0); NEUTROPHIL # 6.6 10^3/ul (1.6-7.5); NEUTROPHILS % 90.6 % (39.0-77.0); PLATELET COUNT 406 10^3/UL (140-415); RED BLOOD COUNT 3.27 10^6/ul (4.20-5.40); RED CELL DISTRIBUTION WIDTH 17.6 % (11.5-14.5)
[2018-06-19 06:47] LABS: WHITE BLOOD COUNT 7.3 10^3/ul (4.8-10.8)
[2018-06-19 07:37] LABS: ALBUMIN 3.4 g/dl (3.3-4.9); ANION GAP 6 (5-13); BLOOD UREA NITROGEN 16 mg/dl (7-20); CALCIUM 8.7 mg/dl (8.4-10.2); CHLORIDE 91 mmol/L (97-110); CREATININE 0.53 mg/dl (0.44-1.00); GLUCOSE 123 mg/dl (70-220); MAGNESIUM 2.2 mg/dl (1.7-2.5); PHOSPHORUS 4.3 mg/dl (2.5-4.9); POTASSIUM 4.6 mmol/L (3.5-5.1); SODIUM 140 mmol/L (135-144)
[2018-06-19 07:38] LABS: POSITIVE DIFF @See below
[2018-06-19 07:46] LABS: CARBON DIOXIDE 43 mmol/L (21-31)
[2018-06-19] MEDS: traZODone 50 MG TAB PO ×3 (08:49→21:02)
[2018-06-19] MEDS: GABAPENTIN 100 MG CAP PO ×3 (08:49→21:02)
[2018-06-19] MEDS: FLUTICASONE/VILANTEROL 200-25 INH DEVICE INH (08:49)
[2018-06-19] MEDS: METHYLPREDNISOLONE 40 MG INJ IV ×2 (08:50→21:14)
[2018-06-19] MEDS: NICOTINE (7 MG/24 HR) PATCH TRANSDERM (08:52)
[2018-06-19] MEDS: LIDOCAINE 5% PATCH TD (08:53)
[2018-06-19] MEDS: SOD FERRIC GLUC COMPLX 125 MG in SOD CHLORIDE 0.9% 100 ML IVPB (12:41)
[2018-06-19] MEDS: FUROSEMIDE 20 MG INJ IV (18:01)
[2018-06-19] MEDS: CEFEPIME 1GM/50 ML (PMX) 50 ML IVPB ×2 (18:41→21:14)
[2018-06-19] MEDS: MONTELUKAST 10 MG TAB PO (21:02)
[2018-06-19] MEDS: TIOTROPIUM 18 MCG CAPSULE INHA DEV INH (21:10)
[2018-06-19] MEDS: ALPRAZOLAM 1 MG TAB PO (23:50)
[2018-06-20] MEDS: ALBUTEROL/IPRATROPIUM (NEB) 3 ML AMP HHN ×6 (00:08→21:29)
[2018-06-20] MEDS: PANTOPRAZOLE 40 MG INJ IV ×2 (05:30→17:27)
[2018-06-20 05:46] LABS: ADD MAN DIFF? NO
[2018-06-20] MEDS: ONDANSETRON 4 MG INJ IV ×3 (05:47→22:08)
[2018-06-20] MEDS: HYDROCODONE/APAP (5/325) TAB PO ×2 (05:47→16:48)
[2018-06-20 05:48] LABS: ABNORMAL IP MESSAGE 1; BASOPHILS % 0.1 % (0.0-2.0); HEMATOCRIT 27.4 % (37.0-47.0); HEMOGLOBIN 7.8 g/dl (12.0-16.0); LYMPHOCYTES # 0.6 10^3/ul (0.8-2.9); LYMPHOCYTES % 7.9 % (15.0-51.0); MEAN CORPUSCULAR HEMOGLOBIN 25.4 pg (29.0-33.0); MEAN CORPUSCULAR HGB CONC 28.5 g/dl (32.0-37.0); MEAN CORPUSCULAR VOLUME 89.3 fl (82.0-101.0); MEAN PLATELET VOLUME 8.7 fl (7.4-10.4); MONOCYTE # 0.4 10^3/ul (0.3-0.9); MONOCYTES % 5.1 % (0.0-11.0); NEUTROPHIL # 6.3 10^3/ul (1.6-7.5); NEUTROPHILS % 84.2 % (39.0-77.0); NUCLEATED RED BLOOD CELLS% 0.3 /100WBC (0.0-0.0); PLATELET COUNT 364 10^3/UL (140-415); RED BLOOD COUNT 3.07 10^6/ul (4.20-5.40); RED CELL DISTRIBUTION WIDTH 18.2 % (11.5-14.5)
[2018-06-20 05:48] LABS: WHITE BLOOD COUNT 7.5 10^3/ul (4.8-10.8)
[2018-06-20 05:56] LABS: POSITIVE DIFF @See below
[2018-06-20 05:58] LABS: RETICULOCYTE RBC 3.03
[2018-06-20 05:58] LABS: RETICULOCYTE COUNT # 0.097 X10^6 (0.020-0.110); RETICULOCYTE COUNT % 3.2 % (0.5-1.5)
[2018-06-20 06:05] LABS: BLOOD UREA NITROGEN 19 mg/dl (7-20); CALCIUM 8.6 mg/dl (8.4-10.2); CHLORIDE 90 mmol/L (97-110); CREATININE 0.54 mg/dl (0.44-1.00); Estimated GFR > 60 mL/min (>60); GLUCOSE 123 mg/dl (70-220); MAGNESIUM 2.1 mg/dl (1.7-2.5); POTASSIUM 4.7 mmol/L (3.5-5.1); SODIUM 137 mmol/L (135-144)
[2018-06-20 06:11] LABS: LACTATE DEHYDROGENASE 331 IU/L (313-618)
[2018-06-20 06:13] LABS: ANION GAP 2 (5-13)
[2018-06-20 06:14] LABS: CARBON DIOXIDE 45 mmol/L (21-31)
[2018-06-20 06:38] LABS: THYROID STIMULATING HORMONE 0.226 MIU/L (0.465-4.680)
[2018-06-20 07:12] LABS: FOLATE 9.1 ng/ml (2.8-20.0)
[2018-06-20] MEDS: FLUTICASONE/VILANTEROL 200-25 INH DEVICE INH (08:14)
[2018-06-20] MEDS: LIDOCAINE 5% PATCH TD (08:15)
[2018-06-20] MEDS: METHYLPREDNISOLONE 40 MG INJ IV ×2 (08:15→21:41)
[2018-06-20] MEDS: GABAPENTIN 100 MG CAP PO ×3 (08:16→21:41)
[2018-06-20] MEDS: FUROSEMIDE 20 MG INJ IV (08:16)
[2018-06-20] MEDS: traZODone 50 MG TAB PO ×3 (08:16→21:42)
[2018-06-20] MEDS: NICOTINE (7 MG/24 HR) PATCH TRANSDERM (08:17)
[2018-06-20] MEDS: CEFEPIME 1GM/50 ML (PMX) 50 ML IVPB ×2 (09:49→21:46)
[2018-06-20 09:57] LABS: FERRITIN 59.5 ng/ml (11.1-264.0)
[2018-06-20] MEDS: HYDROmorphONE 0.5 MG/0.5 ML SYG IV ×2 (10:08→21:52)
[2018-06-20] MEDS: SOD FERRIC GLUC COMPLX 125 MG in SOD CHLORIDE 0.9% 100 ML IVPB (12:45)
[2018-06-20] MEDS: ALPRAZOLAM 1 MG TAB PO (12:45)
[2018-06-20] MEDS: EPOETIN 10000 UNITS/ML VIAL (ONCOLOGY) SC (18:15)
[2018-06-20] MEDS: TIOTROPIUM 18 MCG CAPSULE INHA DEV INH (21:40)
[2018-06-20] MEDS: MONTELUKAST 10 MG TAB PO (21:42)
[2018-06-21] MEDS: HYDROCODONE/APAP (5/325) TAB PO (00:05)
[2018-06-21] MEDS: ALBUTEROL/IPRATROPIUM (NEB) 3 ML AMP HHN ×6 (01:29→21:33)
[2018-06-21] MEDS: PANTOPRAZOLE 40 MG INJ IV (05:34)
[2018-06-21] MEDS: ONDANSETRON 4 MG INJ IV ×2 (05:39→12:45)
[2018-06-21 06:25] LABS: ADD MAN DIFF? NO
[2018-06-21 06:38] LABS: ABNORMAL IP MESSAGE 1; BASOPHILS % 0.3 % (0.0-2.0); HEMATOCRIT 30.1 % (37.0-47.0); HEMOGLOBIN 8.5 g/dl (12.0-16.0); LYMPHOCYTES # 0.4 10^3/ul (0.8-2.9); LYMPHOCYTES % 5.1 % (15.0-51.0); MEAN CORPUSCULAR HEMOGLOBIN 25.2 pg (29.0-33.0); MEAN CORPUSCULAR HGB CONC 28.2 g/dl (32.0-37.0); MEAN CORPUSCULAR VOLUME 89.3 fl (82.0-101.0); MEAN PLATELET VOLUME 9.1 fl (7.4-10.4); MONOCYTE # 0.4 10^3/ul (0.3-0.9); MONOCYTES % 4.5 % (0.0-11.0); NUCLEATED RED BLOOD CELLS% 0.4 /100WBC (0.0-0.0); PLATELET COUNT 429 10^3/UL (140-415); RED BLOOD COUNT 3.37 10^6/ul (4.20-5.40); RED CELL DISTRIBUTION WIDTH 19.4 % (11.5-14.5)
[2018-06-21 06:48] LABS: POSITIVE DIFF @See below
[2018-06-21 07:14] LABS: BLOOD UREA NITROGEN 21 mg/dl (7-20); CALCIUM 8.9 mg/dl (8.4-10.2); CHLORIDE 90 mmol/L (97-110); CREATININE 0.48 mg/dl (0.44-1.00); Estimated GFR > 60 mL/min (>60); GLUCOSE 109 mg/dl (70-220); POTASSIUM 5.1 mmol/L (3.5-5.1); SODIUM 133 mmol/L (135-144)
[2018-06-21 07:38] LABS: ANION GAP 2 (5-13); CARBON DIOXIDE 41 mmol/L (21-31)
[2018-06-21] MEDS: LIDOCAINE 5% PATCH TD (09:34)
[2018-06-21] MEDS: NICOTINE (7 MG/24 HR) PATCH TRANSDERM (09:34)
[2018-06-21] MEDS: CEFEPIME 1GM/50 ML (PMX) 50 ML IVPB ×2 (09:34→21:39)
[2018-06-21] MEDS: METHYLPREDNISOLONE 40 MG INJ IV ×2 (09:34→21:23)
[2018-06-21] MEDS: FLUTICASONE/VILANTEROL 200-25 INH DEVICE INH (09:34)
[2018-06-21] MEDS: HYDROmorphONE 0.5 MG/0.5 ML SYG IV ×2 (09:35→21:11)
[2018-06-21] MEDS: ALPRAZOLAM 1 MG TAB PO ×2 (09:35→17:37)
[2018-06-21] MEDS: traZODone 50 MG TAB PO ×3 (09:35→21:11)
[2018-06-21] MEDS: GABAPENTIN 100 MG CAP PO ×3 (09:35→21:11)
[2018-06-21] MEDS: FUROSEMIDE 20 MG INJ IV (09:36)
[2018-06-21] MEDS: SOD CHLORIDE 0.9% 100 ML (11:53)
[2018-06-21] MEDS: IOHEXOL 300MG/ML 150 ML BTL (11:53)
[2018-06-21 12:11] LABS: HAPTOGLOBIN 90 mg/dL (43-212)
[2018-06-21] MEDS: NYSTATIN SUSP 5 ML CUP PO ×3 (12:45→21:11)
[2018-06-21] MEDS ORDERED: PANTOPRAZOLE (EC) 40 MG TAB PO (17:04)
[2018-06-21] MEDS: PANTOPRAZOLE (EC) 40 MG TAB PO (17:37)
[2018-06-21 19:46] LABS: PROTEIN, TOTAL 4.9 g/dL (6.1-8.1)
[2018-06-21 20:32] LABS: ERYTHROPOIETIN 25.8 mIU/mL (2.6-18.5)
[2018-06-21] MEDS: QUETIAPINE 25 MG TAB PO (21:08)
[2018-06-21] MEDS: TIOTROPIUM 18 MCG CAPSULE INHA DEV INH (21:09)
[2018-06-21] MEDS: MONTELUKAST 10 MG TAB PO (21:38)
[2018-06-21 23:37] LABS: ALPHA-1-GLOBULINS 0.3 g/dL (0.2-0.3); ALPHA-2-GLOBULINS 0.6 g/dL (0.5-0.9); BETA 2 GLOBULINS 0.2 g/dL (0.2-0.5); BETA GLOBULINS 0.4 g/dL (0.4-0.6); GAMMA GLOBULINS 0.4 g/dL (0.8-1.7)
[2018-06-22] MEDS: ALBUTEROL/IPRATROPIUM (NEB) 3 ML AMP HHN ×6 (01:13→20:35)
[2018-06-22] MEDS: ALPRAZOLAM 1 MG TAB PO ×2 (01:28→23:57)
[2018-06-22] MEDS: HYDROCODONE/APAP (5/325) TAB PO ×2 (01:29→09:01)
[2018-06-22] MEDS: PANTOPRAZOLE (EC) 40 MG TAB PO ×2 (05:33→18:04)
[2018-06-22] MEDS: HYDROmorphONE 0.5 MG/0.5 ML SYG IV ×2 (05:33→15:08)
[2018-06-22] MEDS: FLUTICASONE/VILANTEROL 200-25 INH DEVICE INH (08:51)
[2018-06-22] MEDS: FUROSEMIDE 20 MG INJ IV (08:52)
[2018-06-22] MEDS: CEFEPIME 1GM/50 ML (PMX) 50 ML IVPB ×2 (08:54→20:59)
[2018-06-22] MEDS: METHYLPREDNISOLONE 40 MG INJ IV ×2 (08:54→21:00)
[2018-06-22 08:56] LABS: ADD MAN DIFF? NO
[2018-06-22] MEDS: NICOTINE (7 MG/24 HR) PATCH TRANSDERM (08:59)
[2018-06-22] MEDS: QUETIAPINE 25 MG TAB PO ×2 (09:00→21:01)
[2018-06-22] MEDS: GABAPENTIN 100 MG CAP PO ×3 (09:00→21:01)
[2018-06-22] MEDS: traZODone 50 MG TAB PO ×3 (09:00→21:01)
[2018-06-22] MEDS: LIDOCAINE 5% PATCH TD (09:00)
[2018-06-22 09:06] LABS: ABNORMAL IP MESSAGE 1; BASOPHILS % 0.3 % (0.0-2.0); HEMATOCRIT 29.6 % (37.0-47.0); HEMOGLOBIN 8.2 g/dl (12.0-16.0); LYMPHOCYTES # 0.6 10^3/ul (0.8-2.9); LYMPHOCYTES % 9.5 % (15.0-51.0); MEAN CORPUSCULAR HEMOGLOBIN 25.5 pg (29.0-33.0); MEAN CORPUSCULAR HGB CONC 27.7 g/dl (32.0-37.0); MEAN CORPUSCULAR VOLUME 91.9 fl (82.0-101.0); MEAN PLATELET VOLUME 9.2 fl (7.4-10.4); MONOCYTE # 0.4 10^3/ul (0.3-0.9); MONOCYTES % 6.1 % (0.0-11.0); NEUTROPHIL # 5.4 10^3/ul (1.6-7.5); NEUTROPHILS % 82.1 % (39.0-77.0); PLATELET COUNT 383 10^3/UL (140-415); RED BLOOD COUNT 3.22 10^6/ul (4.20-5.40); RED CELL DISTRIBUTION WIDTH 19.9 % (11.5-14.5)
[2018-06-22 09:06] LABS: WHITE BLOOD COUNT 6.6 10^3/ul (4.8-10.8)
[2018-06-22 09:10] LABS: POSITIVE DIFF @See below
[2018-06-22] MEDS: ONDANSETRON 4 MG INJ IV (09:15)
[2018-06-22 09:27] LABS: BLOOD UREA NITROGEN 22 mg/dl (7-20); CALCIUM 8.7 mg/dl (8.4-10.2); CHLORIDE 89 mmol/L (97-110); CREATININE 0.43 mg/dl (0.44-1.00); Estimated GFR > 60 mL/min (>60); GLUCOSE 113 mg/dl (70-220); MAGNESIUM 2.3 mg/dl (1.7-2.5); POTASSIUM 4.7 mmol/L (3.5-5.1); SODIUM 135 mmol/L (135-144)
[2018-06-22] MEDS: NYSTATIN SUSP 5 ML CUP PO ×4 (09:31→20:59)
[2018-06-22 09:37] LABS: ANION GAP 3 (5-13)
[2018-06-22 09:38] LABS: FREE T4 (FREE THYROXINE) 0.75 ng/dl (0.78-2.44)
[2018-06-22 09:39] LABS: CARBON DIOXIDE 43 mmol/L (21-31)
[2018-06-22 13:21] LABS: FREE T3 2.67 pg/ml (2.77-5.27)
[2018-06-22] MEDS: MONTELUKAST 10 MG TAB PO (21:01)
[2018-06-22] MEDS: TIOTROPIUM 18 MCG CAPSULE INHA DEV INH (21:12)
[2018-06-23] MEDS: ALBUTEROL/IPRATROPIUM (NEB) 3 ML AMP HHN ×6 (00:15→21:45)
[2018-06-23] MEDS: HYDROmorphONE 0.5 MG/0.5 ML SYG IV ×2 (00:47→09:50)
[2018-06-23] MEDS: ONDANSETRON 4 MG INJ IV ×2 (05:00→21:48)
[2018-06-23] MEDS: PANTOPRAZOLE (EC) 40 MG TAB PO ×2 (05:00→17:32)
[2018-06-23] MEDS: HYDROCODONE/APAP (5/325) TAB PO (05:00)
[2018-06-23 06:34] LABS: ADD MAN DIFF? NO
[2018-06-23 06:49] LABS: WHITE BLOOD COUNT 7.1 10^3/ul (4.8-10.8)
[2018-06-23 06:49] LABS: ABNORMAL IP MESSAGE 1; BASOPHILS % 0.1 % (0.0-2.0); HEMATOCRIT 29.4 % (37.0-47.0); HEMOGLOBIN 8.4 g/dl (12.0-16.0); LYMPHOCYTES # 0.6 10^3/ul (0.8-2.9); LYMPHOCYTES % 8.2 % (15.0-51.0); MEAN CORPUSCULAR HEMOGLOBIN 25.8 pg (29.0-33.0); MEAN CORPUSCULAR HGB CONC 28.6 g/dl (32.0-37.0); MEAN CORPUSCULAR VOLUME 90.2 fl (82.0-101.0); MEAN PLATELET VOLUME 9.2 fl (7.4-10.4); MONOCYTE # 0.4 10^3/ul (0.3-0.9); MONOCYTES % 5.6 % (0.0-11.0); NEUTROPHILS % 84.7 % (39.0-77.0); PLATELET COUNT 340 10^3/UL (140-415); RED BLOOD COUNT 3.26 10^6/ul (4.20-5.40); RED CELL DISTRIBUTION WIDTH 20.2 % (11.5-14.5)
[2018-06-23 07:03] LABS: BLOOD UREA NITROGEN 24 mg/dl (7-20); CALCIUM 8.5 mg/dl (8.4-10.2); CHLORIDE 90 mmol/L (97-110); CREATININE 0.51 mg/dl (0.44-1.00); Estimated GFR > 60 mL/min (>60); GLUCOSE 123 mg/dl (70-220); POTASSIUM 4.7 mmol/L (3.5-5.1); SODIUM 135 mmol/L (135-144)
[2018-06-23 07:12] LABS: ANION GAP 0 (5-13)
[2018-06-23 07:14] LABS: CARBON DIOXIDE 45 mmol/L (21-31)
[2018-06-23 07:15] LABS: POSITIVE DIFF @See below
[2018-06-23] MEDS: NYSTATIN SUSP 5 ML CUP PO ×4 (09:12→21:32)
[2018-06-23] MEDS: GABAPENTIN 100 MG CAP PO ×2 (09:12→12:17)
[2018-06-23] MEDS: NICOTINE (7 MG/24 HR) PATCH TRANSDERM (09:12)
[2018-06-23] MEDS: traZODone 50 MG TAB PO ×3 (09:13→21:32)
[2018-06-23] MEDS: LIDOCAINE 5% PATCH TD (09:13)
[2018-06-23] MEDS: QUETIAPINE 25 MG TAB PO ×2 (09:13→21:32)
[2018-06-23] MEDS: FLUTICASONE/VILANTEROL 200-25 INH DEVICE INH (09:13)
[2018-06-23] MEDS: CEFEPIME 1GM/50 ML (PMX) 50 ML IVPB (09:13)
[2018-06-23] MEDS: FUROSEMIDE 20 MG INJ IV (09:14)
[2018-06-23] MEDS: METHYLPREDNISOLONE 40 MG INJ IV ×2 (09:14→21:00)
[2018-06-23] MEDS: ALPRAZOLAM 1 MG TAB PO ×2 (15:21→23:48)
[2018-06-23] MEDS: TIOTROPIUM 18 MCG CAPSULE INHA DEV INH (21:32)
[2018-06-23] MEDS: MONTELUKAST 10 MG TAB PO (21:32)
[2018-06-24] MEDS: ACETAMINOPHEN 325 MG TAB PO ×2 (00:48→12:40)
[2018-06-24] MEDS: ALBUTEROL/IPRATROPIUM (NEB) 3 ML AMP HHN ×6 (01:00→20:39)
[2018-06-24] MEDS: PANTOPRAZOLE (EC) 40 MG TAB PO ×2 (05:08→17:39)
[2018-06-24 07:58] LABS: ADD MAN DIFF? NO
[2018-06-24 08:02] LABS: WHITE BLOOD COUNT 7.4 10^3/ul (4.8-10.8)
[2018-06-24 08:02] LABS: ABNORMAL IP MESSAGE 1; EOSINOPHILS % 0.3 % (0.0-7.0); HEMATOCRIT 31.2 % (37.0-47.0); HEMOGLOBIN 8.9 g/dl (12.0-16.0); LYMPHOCYTES # 1.2 10^3/ul (0.8-2.9); LYMPHOCYTES % 15.6 % (15.0-51.0); MEAN CORPUSCULAR HEMOGLOBIN 25.9 pg (29.0-33.0); MEAN CORPUSCULAR HGB CONC 28.5 g/dl (32.0-37.0); MEAN CORPUSCULAR VOLUME 90.7 fl (82.0-101.0); MEAN PLATELET VOLUME 8.9 fl (7.4-10.4); MONOCYTE # 1.1 10^3/ul (0.3-0.9); MONOCYTES % 14.9 % (0.0-11.0); NEUTROPHILS % 67.6 % (39.0-77.0); PLATELET COUNT 324 10^3/UL (140-415); RED BLOOD COUNT 3.44 10^6/ul (4.20-5.40); RED CELL DISTRIBUTION WIDTH 20.5 % (11.5-14.5)
[2018-06-24 08:24] LABS: BLOOD UREA NITROGEN 27 mg/dl (7-20); CALCIUM 8.6 mg/dl (8.4-10.2); CHLORIDE 87 mmol/L (97-110); CREATININE 0.53 mg/dl (0.44-1.00); Estimated GFR > 60 mL/min (>60); GLUCOSE 94 mg/dl (70-220); POTASSIUM 4.3 mmol/L (3.5-5.1); SODIUM 137 mmol/L (135-144)
[2018-06-24 08:35] LABS: ANION GAP 4 (5-13); CARBON DIOXIDE 46 mmol/L (21-31)
[2018-06-24] MEDS: METHYLPREDNISOLONE 40 MG INJ IV ×3 (09:00→21:13)
[2018-06-24 09:07] LABS: POSITIVE DIFF @See below
[2018-06-24] MEDS: NYSTATIN SUSP 5 ML CUP PO ×4 (09:14→21:13)
[2018-06-24] MEDS: QUETIAPINE 25 MG TAB PO ×2 (09:17→21:11)
[2018-06-24] MEDS: traZODone 50 MG TAB PO ×3 (09:18→21:11)
[2018-06-24] MEDS: NICOTINE (7 MG/24 HR) PATCH TRANSDERM (09:18)
[2018-06-24] MEDS: LIDOCAINE 5% PATCH TD (09:20)
[2018-06-24] MEDS: FLUTICASONE/VILANTEROL 200-25 INH DEVICE INH (09:21)
[2018-06-24] MEDS ORDERED: ALPRAZOLAM 0.5 MG TAB PO (13:00)
[2018-06-24] MEDS: BUDESONIDE (NEB) 0.5MG/2ML AMP HHN ×2 (13:53→20:42)
[2018-06-24] MEDS: ARFORMOTEROL TARTRATE 15MCG/2 ML AMP NEB ×2 (14:00→20:43)
[2018-06-24 14:14] LABS: CARCINOEMBRYONIC ANTIGEN 6.9 ng/ml (0.0-5.0)
[2018-06-24] MEDS: SUCRALFATE (100 MG/ML) 10ML CUP NGT ×3 (15:50→21:12)
[2018-06-24] MEDS: FERROUS SULFATE (EC) 325 MG TAB PO ×2 (15:50→21:13)
[2018-06-24] MEDS: traMADol 50 MG TAB PO (15:50)
[2018-06-24] MEDS: METHYLPREDNISOLONE 125 MG INJ IM (15:54)
[2018-06-24] MEDS: ALPRAZOLAM 1 MG TAB PO (18:21)
[2018-06-24] MEDS: TIOTROPIUM 18 MCG CAPSULE INHA DEV INH (21:09)
[2018-06-24] MEDS: DOCUSATE SODIUM 100 MG CAP PO (21:11)
[2018-06-24] MEDS: MONTELUKAST 10 MG TAB PO (21:13)
[2018-06-25] MEDS: METHYLPREDNISOLONE 40 MG INJ IV ×6 (00:18→21:52)
[2018-06-25] MEDS: ALBUTEROL/IPRATROPIUM (NEB) 3 ML AMP HHN ×7 (01:34→23:47)
[2018-06-25] MEDS: PANTOPRAZOLE (EC) 40 MG TAB PO ×2 (06:32→17:52)
[2018-06-25 06:52] LABS: BLOOD UREA NITROGEN 17 mg/dl (7-20); CALCIUM 8.8 mg/dl (8.4-10.2); CHLORIDE 90 mmol/L (97-110); CREATININE 0.38 mg/dl (0.44-1.00); Estimated GFR > 60 mL/min (>60); GLUCOSE 128 mg/dl (70-220); POTASSIUM 4.3 mmol/L (3.5-5.1); SODIUM 138 mmol/L (135-144)
[2018-06-25 07:02] LABS: ANION GAP 9 (5-13)
[2018-06-25 07:05] LABS: CARBON DIOXIDE 39 mmol/L (21-31)
[2018-06-25] MEDS: NYSTATIN SUSP 5 ML CUP PO ×4 (08:52→21:50)
[2018-06-25] MEDS: FLUTICASONE/VILANTEROL 200-25 INH DEVICE INH (08:52)
[2018-06-25] MEDS: traZODone 50 MG TAB PO ×3 (08:53→21:50)
[2018-06-25] MEDS: DOCUSATE SODIUM 100 MG CAP PO ×2 (08:53→21:50)
[2018-06-25] MEDS: SUCRALFATE (100 MG/ML) 10ML CUP NGT ×4 (08:53→21:50)
[2018-06-25] MEDS: QUETIAPINE 25 MG TAB PO ×2 (08:54→21:50)
[2018-06-25] MEDS: FERROUS SULFATE (EC) 325 MG TAB PO ×3 (08:54→21:50)
[2018-06-25] MEDS: BUDESONIDE (NEB) 0.5MG/2ML AMP HHN ×3 (08:57→20:56)
[2018-06-25] MEDS: ARFORMOTEROL TARTRATE 15MCG/2 ML AMP NEB ×3 (08:57→21:00)
[2018-06-25] MEDS: NICOTINE (7 MG/24 HR) PATCH TRANSDERM (11:36)
[2018-06-25] MEDS: LIDOCAINE 5% PATCH TD (11:37)
[2018-06-25] MEDS: BARIUM SULF 2% 450 ML BTL (BERRY SMOOTHIE) PO (15:06)
[2018-06-25] MEDS: SOD CHLORIDE 0.9% 100 ML (17:41)
[2018-06-25] MEDS: IODIXANOL LOCM 100 ML BTL (17:43)
[2018-06-25] MEDS: MONTELUKAST 10 MG TAB PO (21:50)
[2018-06-25] MEDS: TIOTROPIUM 18 MCG CAPSULE INHA DEV INH (22:24)
[2018-06-25] MEDS: LORAZEPAM 4 MG/ML VIAL IV (23:46)
[2018-06-25] MEDS: HALOPERIDOL 5 MG INJ IM (23:47)
[2018-06-26] MEDS: ONDANSETRON 4 MG INJ IV (04:27)
[2018-06-26] MEDS: HYDROCODONE/APAP (5/325) TAB PO (04:27)
[2018-06-26] MEDS: ALPRAZOLAM 1 MG TAB PO ×2 (04:35→17:26)
[2018-06-26] MEDS: ALBUTEROL/IPRATROPIUM (NEB) 3 ML AMP HHN ×5 (04:58→21:40)
[2018-06-26] MEDS: METHYLPREDNISOLONE 40 MG INJ IV ×3 (05:36→13:11)
[2018-06-26] MEDS: PANTOPRAZOLE (EC) 40 MG TAB PO ×2 (05:36→17:27)
[2018-06-26 08:46] LABS: BLOOD UREA NITROGEN 16 mg/dl (7-20); CALCIUM 8.5 mg/dl (8.4-10.2); CHLORIDE 92 mmol/L (97-110); CREATININE 0.31 mg/dl (0.44-1.00); Estimated GFR > 60 mL/min (>60); GLUCOSE 76 mg/dl (70-220); SODIUM 137 mmol/L (135-144)
[2018-06-26 08:54] LABS: ANION GAP 6 (5-13); CARBON DIOXIDE 39 mmol/L (21-31)
[2018-06-26] MEDS: BUDESONIDE (NEB) 0.5MG/2ML AMP HHN ×2 (08:54→21:40)
[2018-06-26] MEDS: ARFORMOTEROL TARTRATE 15MCG/2 ML AMP NEB ×2 (08:54→21:00)
[2018-06-26] MEDS: SUCRALFATE (100 MG/ML) 10ML CUP NGT ×4 (09:19→20:59)
[2018-06-26] MEDS: NYSTATIN SUSP 5 ML CUP PO ×4 (09:19→21:52)
[2018-06-26] MEDS: DOCUSATE SODIUM 100 MG CAP PO ×2 (09:20→20:58)
[2018-06-26] MEDS: FERROUS SULFATE (EC) 325 MG TAB PO ×2 (09:20→13:11)
[2018-06-26] MEDS: traZODone 50 MG TAB PO ×3 (09:20→20:59)
[2018-06-26] MEDS: QUETIAPINE 25 MG TAB PO ×2 (09:20→20:59)
[2018-06-26] MEDS: NICOTINE (7 MG/24 HR) PATCH TRANSDERM (09:21)
[2018-06-26] MEDS: LIDOCAINE 5% PATCH TD (09:22)
[2018-06-26] MEDS: FLUTICASONE/VILANTEROL 200-25 INH DEVICE INH (10:11)
[2018-06-26] MEDS: MONTELUKAST 10 MG TAB PO (20:58)
[2018-06-26] MEDS: TIOTROPIUM 18 MCG CAPSULE INHA DEV INH (21:32)
[2018-06-27] MEDS: ALBUTEROL/IPRATROPIUM (NEB) 3 ML AMP HHN ×5 (00:51→17:00)
[2018-06-27] MEDS: METHYLPREDNISOLONE 40 MG INJ IV ×2 (01:46→13:07)
[2018-06-27] MEDS: PANTOPRAZOLE (EC) 40 MG TAB PO (05:38)
[2018-06-27] MEDS: SUCRALFATE (100 MG/ML) 10ML CUP NGT ×2 (08:52→13:05)
[2018-06-27] MEDS: QUETIAPINE 25 MG TAB PO (08:52)
[2018-06-27] MEDS: NYSTATIN SUSP 5 ML CUP PO ×2 (08:52→13:05)
[2018-06-27] MEDS: DOCUSATE SODIUM 100 MG CAP PO (08:52)
[2018-06-27] MEDS: traZODone 50 MG TAB PO ×2 (08:53→13:05)
[2018-06-27] MEDS: FLUTICASONE/VILANTEROL 200-25 INH DEVICE INH (08:54)
[2018-06-27] MEDS: LIDOCAINE 5% PATCH TD (08:55)
[2018-06-27] MEDS: NICOTINE (7 MG/24 HR) PATCH TRANSDERM (08:55)
[2018-06-27] MEDS: ARFORMOTEROL TARTRATE 15MCG/2 ML AMP NEB (09:00)
[2018-06-27] MEDS: BUDESONIDE (NEB) 0.5MG/2ML AMP HHN (09:04)
[2018-06-27 10:19] LABS: HEMOGLOBIN 9.5 g/dl (12.0-16.0)
== END 2018-06-27 16:40 | disposition home health service (06) | DRG 190 ==
LOC: PP2 06-18 00:30 → E/R 19:02 → 6WM 21:18 → 5EC 06-19 16:08
PROVIDERS: Family Medicine
DX: J44.1 Chronic obstructive pulmonary disease with (acute) exacerbation (principal); J96.22 Acute and chronic respiratory failure with hypercapnia; J96.21 Acute and chronic respiratory failure with hypoxia; E87.3 Alkalosis; B37.0 Candidal stomatitis; Z66 Do not resuscitate; D50.9 Iron deficiency anemia, unspecified; I10 Essential (primary) hypertension; F17.200 Nicotine dependence, unspecified, uncomplicated; F29 Unspecified psychosis not due to a substance or known physiological condition; K59.00 Constipation, unspecified; G89.29 Other chronic pain; F41.8 Other specified anxiety disorders; F28 Other psychotic disorder not due to a substance or known physiological condition
CPT/HCPCS: 71045; 71260; 74177; 80048; 80053; 80061; 80069; 82270; 82378; 82607; 82668; 82728; 82746; 83010; 83036; 83540; 83615; 83735; 84155; 84165; 84439; 84443; 84481; 84484; 85018; 85025; 85045; 86850; 86900; 86901; 86920; 87070; 87400; 93005; 93306; 93970; 94640; 94644; 96374; 97116; 97161; 97530; 99285-25; J0885

== ENCOUNTER 2018-06-28 04:05 | Emergency (ER) | payer OTHER ==
[2018-06-28] MEDS: ALBUTEROL 0.083% (NEB) 2.5 MG/3 ML AMP NEB (05:22)
[2018-06-28] MEDS: IPRATROPIUM (NEB) 0.5 MG/2.5 ML AMP NEB (05:22)
[2018-06-28] MEDS: LORAZEPAM 1 MG TAB PO (09:32)
== END 2018-06-28 10:00 | disposition home or self-care (01) ==
LOC: E/R 04:05
DX: R07.9 Chest pain, unspecified (principal); J44.9 Chronic obstructive pulmonary disease, unspecified; I10 Essential (primary) hypertension; F17.210 Nicotine dependence, cigarettes, uncomplicated; Z79.82 Long term (current) use of aspirin
CPT/HCPCS: 71045; 99283

== ENCOUNTER 2018-10-12 15:40 | Inpatient (IN) | payer OTHER ==
[2018-10-12] MEDS: LORAZEPAM 2 MG INJ IV (16:26)
[2018-10-12 16:27] LABS: ADD MAN DIFF? NO
[2018-10-12 16:32] LABS: WHITE BLOOD COUNT 5.7 10^3/ul (4.8-10.8)
[2018-10-12 16:32] LABS: BASOPHIL # 0.1 10^3/ul (0.0-0.1); BASOPHILS % 1.1 % (0.0-2.0); EOSINOPHILS % 0.4 % (0.0-7.0); HEMATOCRIT 27.5 % (37.0-47.0); HEMOGLOBIN 8.6 g/dl (12.0-16.0); LYMPHOCYTES # 0.9 10^3/ul (0.8-2.9); LYMPHOCYTES % 15.9 % (15.0-51.0); MEAN CORPUSCULAR HEMOGLOBIN 26.8 pg (29.0-33.0); MEAN CORPUSCULAR HGB CONC 31.3 g/dl (32.0-37.0); MEAN CORPUSCULAR VOLUME 85.7 fl (82.0-101.0); MEAN PLATELET VOLUME 8.5 fl (7.4-10.4); MONOCYTE # 0.7 10^3/ul (0.3-0.9); MONOCYTES % 12.6 % (0.0-11.0); NEUTROPHIL # 3.9 10^3/ul (1.6-7.5); NEUTROPHILS % 68.9 % (39.0-77.0); PLATELET COUNT 479 10^3/UL (140-415); RED BLOOD COUNT 3.21 10^6/ul (4.20-5.40); RED CELL DISTRIBUTION WIDTH 14.8 % (11.5-14.5)
[2018-10-12 16:51] LABS: ANION GAP 6 (5-13); BLOOD UREA NITROGEN 12 mg/dl (7-20); CALCIUM 8.6 mg/dl (8.4-10.2); CARBON DIOXIDE 33 mmol/L (21-31); CHLORIDE 92 mmol/L (97-110); Estimated GFR > 60 mL/min (>60); GLUCOSE 82 mg/dl (70-220); POTASSIUM 4.1 mmol/L (3.5-5.1); SODIUM 131 mmol/L (135-144)
[2018-10-12 17:01] LABS: TROPONIN-I < 0.012 ng/ml (0.000-0.120)
[2018-10-12] MEDS: ALBUTEROL 0.5% (NEB) 2.5 MG/0.5 ML AMP INH (20:59)
[2018-10-13] MEDS: ALBUTEROL 0.083% (NEB) 2.5 MG/3 ML AMP NEB (01:48)
[2018-10-13] MEDS ORDERED: ACETAMINOPHEN 325 MG TAB PO ×2 (05:30→06:00)
[2018-10-13] MEDS ORDERED: NACL 0.9% 3 ML SYG IV (06:00)
[2018-10-13] MEDS: ONDANSETRON 4 MG INJ IV ×2 (07:00→15:53)
[2018-10-13] MEDS: ALBUTEROL/IPRATROPIUM (NEB) 3 ML AMP HHN ×2 (07:07→10:38)
[2018-10-13] MEDS ORDERED: LORAZEPAM 2 MG INJ IV (07:30)
[2018-10-13] MEDS: BUDESONIDE (NEB) 0.5MG/2ML AMP HHN ×2 (09:30→20:45)
[2018-10-13] MEDS: FAMOTIDINE 20 MG TAB PO ×3 (10:02→21:01)
[2018-10-13] MEDS: METHYLPREDNISOLONE 40 MG INJ IV (10:04)
[2018-10-13] MEDS: SOD CHLORIDE 0.9% 1,000 ML IV ×2 (10:04→21:00)
[2018-10-13] MEDS: SUCRALFATE (100 MG/ML) 10ML CUP PO ×5 (13:00→21:00)
[2018-10-13] MEDS: FERROUS SULFATE (EC) 325 MG TAB PO ×3 (13:00→21:01)
[2018-10-13] MEDS: QUETIAPINE 25 MG TAB PO (13:19)
[2018-10-13] MEDS: LEVALBUTEROL (NEB) 1.25 MG/0.5 ML AMP HHN ×3 (14:00→20:45)
[2018-10-13] MEDS: IPRATROPIUM (NEB) 0.5 MG/2.5 ML AMP HHN ×3 (14:00→20:45)
[2018-10-13] MEDS: LORAZEPAM 1 MG TAB PO (15:52)
[2018-10-13] MEDS: traMADol 50 MG TAB PO (15:53)
[2018-10-14] MEDS: LEVALBUTEROL (NEB) 1.25 MG/0.5 ML AMP HHN ×4 (01:10→19:30)
[2018-10-14] MEDS: PANTOPRAZOLE (EC) 40 MG TAB PO (05:43)
[2018-10-14] MEDS: ONDANSETRON 4 MG INJ IV ×3 (06:18→20:24)
[2018-10-14] MEDS: IPRATROPIUM (NEB) 0.5 MG/2.5 ML AMP HHN ×3 (07:49→19:30)
[2018-10-14] MEDS: LORAZEPAM 1 MG TAB PO ×2 (08:19→21:09)
[2018-10-14] MEDS: SUCRALFATE (100 MG/ML) 10ML CUP PO ×4 (09:00→21:07)
[2018-10-14] MEDS: FAMOTIDINE 20 MG TAB PO ×2 (09:00→21:08)
[2018-10-14] MEDS: QUETIAPINE 25 MG TAB PO ×2 (09:17→21:06)
[2018-10-14] MEDS: FERROUS SULFATE (EC) 325 MG TAB PO ×3 (09:17→21:07)
[2018-10-14] MEDS: BUDESONIDE (NEB) 0.5MG/2ML AMP HHN ×2 (10:09→19:30)
[2018-10-14] MEDS: ESCITALOPRAM 10 MG TAB PO (13:09)
[2018-10-14 14:21] LABS: OCCULT BLOOD STOOL NEGATIVE (NEGATIVE)
[2018-10-14 15:28] LABS: HEMATOCRIT 27.4 % (37.0-47.0); HEMOGLOBIN 8.5 g/dl (12.0-16.0); MEAN CORPUSCULAR HEMOGLOBIN 26.3 pg (29.0-33.0); MEAN CORPUSCULAR VOLUME 84.8 fl (82.0-101.0); MEAN PLATELET VOLUME 8.5 fl (7.4-10.4); PLATELET COUNT 502 10^3/UL (140-415); RED BLOOD COUNT 3.23 10^6/ul (4.20-5.40); RED CELL DISTRIBUTION WIDTH 15.4 % (11.5-14.5)
[2018-10-14 15:28] LABS: WHITE BLOOD COUNT 5.9 10^3/ul (4.8-10.8)
[2018-10-14 15:30] LABS: ADD MAN DIFF? YES; POSITIVE DIFF @See below
[2018-10-14 15:53] LABS: ALANINE AMINOTRANSFERASE 31 IU/L (13-69); ALBUMIN 3.1 g/dl (3.3-4.9); ALKALINE PHOSPHATASE 84 IU/L (42-121); ANION GAP 6 (5-13); ASPARTATE AMINO TRANSFERASE 29 IU/L (15-46); BILIRUBIN,INDIRECT 0.1 mg/dl (0-1.1); BILIRUBIN,TOTAL 0.1 mg/dl (0.2-1.3); BLOOD UREA NITROGEN 10 mg/dl (7-20); CALCIUM 8.9 mg/dl (8.4-10.2); CARBON DIOXIDE 31 mmol/L (21-31); CHLORIDE 99 mmol/L (97-110); CREATININE 0.43 mg/dl (0.44-1.00); Estimated GFR > 60 mL/min (>60); GLUCOSE 93 mg/dl (70-220); MAGNESIUM 1.7 mg/dl (1.7-2.5); PHOSPHORUS 2.8 mg/dl (2.5-4.9); POTASSIUM 3.4 mmol/L (3.5-5.1); SODIUM 136 mmol/L (135-144); TOTAL PROTEIN 6.2 g/dl (6.1-8.1)
[2018-10-14 16:42] LABS: ANISOCYTOSIS 1+ (0-0); BAND NEUTROPHILS #M 0.1 10^3/ul (0.0-0.6); BAND NEUTROPHILS % (M) 3 % (0-4); BASOPHILS % (M) 1 % (0-2); GIANT THROMBO% (M) 1 % (0-0); HYPOCHROMASIA 2+ (0-0); LYMPHOCYTES #M 1.5 10^3/ul (0.8-2.9); LYMPHOCYTES % (M) 26 % (15-51); MICROCYTOSIS 1+ (0-0); MONOCYTE #M 0.7 10^3/ul (0.3-0.9); MONOCYTES % (M) 12 % (0-11); MYELOCYTES % (M) 1 % (0-0); PLATELET ESTIMATE NORMAL; POLYCHROMASIA 1+ (0-0); REACTIVE LYMPHOCYTES% (M) 1 % (0-0); SEG NEUT #M 3.3 10^3/ul (1.6-7.5); SEGMENTED NEUTROPHILS (M) % 56 % (39-77); SMUDGE%M 11 % (0-0)
[2018-10-14] MEDS: valACYclovir 500 MG TAB PO (21:08)
[2018-10-14] MEDS: traMADol 50 MG TAB PO (21:09)
[2018-10-14] MEDS: CALAMINE 170 ML LOT TOP (21:14)
[2018-10-15] MEDS: LEVALBUTEROL (NEB) 1.25 MG/0.5 ML AMP HHN ×5 (02:00→19:29)
[2018-10-15] MEDS: IPRATROPIUM (NEB) 0.5 MG/2.5 ML AMP HHN ×4 (03:23→19:30)
[2018-10-15] MEDS: traMADol 50 MG TAB PO ×3 (03:55→20:26)
[2018-10-15] MEDS: PANTOPRAZOLE (EC) 40 MG TAB PO (05:54)
[2018-10-15 06:11] LABS: WHITE BLOOD COUNT 5.8 10^3/ul (4.8-10.8)
[2018-10-15 06:11] LABS: HEMOGLOBIN 8.3 g/dl (12.0-16.0); MEAN CORPUSCULAR HGB CONC 30.7 g/dl (32.0-37.0); MEAN CORPUSCULAR VOLUME 84.6 fl (82.0-101.0); MEAN PLATELET VOLUME 8.8 fl (7.4-10.4); PLATELET COUNT 493 10^3/UL (140-415); RED BLOOD COUNT 3.19 10^6/ul (4.20-5.40); RED CELL DISTRIBUTION WIDTH 15.6 % (11.5-14.5)
[2018-10-15 06:33] LABS: POSITIVE DIFF @See below
[2018-10-15 06:34] LABS: ADD MAN DIFF? YES
[2018-10-15 06:37] LABS: ANION GAP 5 (5-13); BLOOD UREA NITROGEN 10 mg/dl (7-20); CALCIUM 8.7 mg/dl (8.4-10.2); CARBON DIOXIDE 33 mmol/L (21-31); CHLORIDE 98 mmol/L (97-110); CREATININE 0.45 mg/dl (0.44-1.00); Estimated GFR > 60 mL/min (>60); GLUCOSE 85 mg/dl (70-220); MAGNESIUM 1.7 mg/dl (1.7-2.5); PHOSPHORUS 3.1 mg/dl (2.5-4.9); POTASSIUM 3.2 mmol/L (3.5-5.1); SODIUM 136 mmol/L (135-144)
[2018-10-15] MEDS: BUDESONIDE (NEB) 0.5MG/2ML AMP HHN ×2 (07:51→19:30)
[2018-10-15] MEDS: SUCRALFATE (100 MG/ML) 10ML CUP PO ×4 (09:00→20:27)
[2018-10-15] MEDS: QUETIAPINE 25 MG TAB PO ×2 (09:26→20:26)
[2018-10-15] MEDS: FERROUS SULFATE (EC) 325 MG TAB PO ×3 (09:26→20:26)
[2018-10-15] MEDS: FAMOTIDINE 20 MG TAB PO ×2 (09:27→20:26)
[2018-10-15] MEDS: ESCITALOPRAM 10 MG TAB PO (09:27)
[2018-10-15] MEDS: ONDANSETRON 4 MG INJ IV ×2 (09:27→16:48)
[2018-10-15] MEDS: valACYclovir 500 MG TAB PO ×3 (09:27→20:25)
[2018-10-15] MEDS: LORAZEPAM 1 MG TAB PO ×2 (09:27→18:28)
[2018-10-15 10:20] LABS: ANISOCYTOSIS 1+ (0-0); BAND NEUTROPHILS #M 0.1 10^3/ul (0.0-0.6); BAND NEUTROPHILS % (M) 3 % (0-4); BASOPHILS % (M) 1 % (0-2); GIANT THROMBO% (M) 1 % (0-0); HYPOCHROMASIA 1+ (0-0); LYMPHOCYTES #M 1.1 10^3/ul (0.8-2.9); LYMPHOCYTES % (M) 19 % (15-51); MICROCYTOSIS 1+ (0-0); MONOCYTE #M 1.2 10^3/ul (0.3-0.9); MONOCYTES % (M) 21 % (0-11); MYELOCYTES % (M) 1 % (0-0); PLATELET ESTIMATE NORMAL; POIKILOCYTOSIS 1+ (0-0); POLYCHROMASIA 3+ (0-0); REACTIVE LYMPHOCYTES #M 0.2 10^3/ul (0.0-0.0); REACTIVE LYMPHOCYTES% (M) 5 % (0-0); SEG NEUT #M 2.9 10^3/ul (1.6-7.5); SEGMENTED NEUTROPHILS (M) % 50 % (39-77); SMUDGE%M 11 % (0-0)
[2018-10-15] MEDS: ALBUTEROL/IPRATROPIUM (NEB) 3 ML AMP HHN ×2 (11:29→17:20)
[2018-10-15] MEDS: POTASSIUM CHLORIDE (SR) 20 MEQ TAB PO ×2 (13:33→16:48)
[2018-10-15 14:29] LABS: AADO2 Arterial 32.1 mmHg (7.0-24.0); Arterial Base Excess 4.7 mmol/L (-3.0-3); Arterial Blood Gas Oxygen Sat 98.8 mmHG (95.0-98.0); Arterial COHb 0.4 % (0.0-3.0); Arterial Fraction of Oxyhgb 98.2 % (93.0-99.0); Arterial HCO3 29.8 mmol/L (22.0-26.0); Arterial MetHb 0.2 % (0.0-1.5); Arterial pCO2 46.9 mmhg (35-45); MODE MASK - VENTI; Site LB
[2018-10-15] MEDS: MUPIROCIN 2% 22 GM OINT TOP (16:48)
[2018-10-15] MEDS: DOXYCYCLINE 100 MG in SOD CHLORIDE 0.9% 250 ML IVPB (16:52)
[2018-10-15] MEDS: MONTELUKAST 10 MG TAB PO (20:28)
[2018-10-16] MEDS: DOXYCYCLINE 100 MG in SOD CHLORIDE 0.9% 250 ML IVPB (01:02)
[2018-10-16] MEDS: MUPIROCIN 2% 22 GM OINT TOP ×3 (01:03→21:34)
[2018-10-16] MEDS: LEVALBUTEROL (NEB) 1.25 MG/0.5 ML AMP HHN ×2 (01:26→07:41)
[2018-10-16] MEDS: ONDANSETRON 4 MG INJ IV ×3 (01:41→17:40)
[2018-10-16] MEDS: ALBUTEROL/IPRATROPIUM (NEB) 3 ML AMP HHN (05:08)
[2018-10-16] MEDS: PANTOPRAZOLE (EC) 40 MG TAB PO (05:44)
[2018-10-16 05:57] LABS: HEMATOCRIT 27.1 % (37.0-47.0); HEMOGLOBIN 8.1 g/dl (12.0-16.0); MEAN CORPUSCULAR HEMOGLOBIN 26.1 pg (29.0-33.0); MEAN CORPUSCULAR HGB CONC 29.9 g/dl (32.0-37.0); MEAN CORPUSCULAR VOLUME 87.4 fl (82.0-101.0); MEAN PLATELET VOLUME 8.8 fl (7.4-10.4); PLATELET COUNT 442 10^3/UL (140-415)
[2018-10-16 05:57] LABS: WHITE BLOOD COUNT 6.6 10^3/ul (4.8-10.8)
[2018-10-16 06:06] LABS: ADD MAN DIFF? YES; POSITIVE DIFF @See below
[2018-10-16 07:01] LABS: ANION GAP 5 (5-13); BLOOD UREA NITROGEN 11 mg/dl (7-20); CALCIUM 8.9 mg/dl (8.4-10.2); CARBON DIOXIDE 28 mmol/L (21-31); CHLORIDE 104 mmol/L (97-110); CREATININE 0.47 mg/dl (0.44-1.00); Estimated GFR > 60 mL/min (>60); GLUCOSE 74 mg/dl (70-220); MAGNESIUM 1.6 mg/dl (1.7-2.5); PHOSPHORUS 3.6 mg/dl (2.5-4.9); POTASSIUM 4.4 mmol/L (3.5-5.1); SODIUM 137 mmol/L (135-144)
[2018-10-16] MEDS: BUDESONIDE (NEB) 0.5MG/2ML AMP HHN ×2 (07:41→20:09)
[2018-10-16] MEDS: IPRATROPIUM (NEB) 0.5 MG/2.5 ML AMP HHN ×3 (07:41→20:10)
[2018-10-16 07:53] LABS: SEGMENTED NEUTROPHILS (M) % 26 % (39-77)
[2018-10-16 07:54] LABS: ANISOCYTOSIS 1+ (0-0); BAND NEUTROPHILS #M 0.5 10^3/ul (0.0-0.6); BAND NEUTROPHILS % (M) 9 % (0-4); HYPOCHROMASIA 1+ (0-0); LYMPHOCYTES #M 3.6 10^3/ul (0.8-2.9); LYMPHOCYTES % (M) 56 % (15-51); MICROCYTOSIS 1+ (0-0); MONOCYTE #M 0.2 10^3/ul (0.3-0.9); MONOCYTES % (M) 4 % (0-11); OVALOCYTES 1+ (0-0); PLATELET ESTIMATE NORMAL; POLYCHROMASIA 3+ (0-0); REACTIVE LYMPHOCYTES #M 0.3 10^3/ul (0.0-0.0); REACTIVE LYMPHOCYTES% (M) 5 % (0-0); SEG NEUT #M 1.7 10^3/ul (1.6-7.5); SMUDGE%M 16 % (0-0)
[2018-10-16] MEDS: QUETIAPINE 25 MG TAB PO ×2 (08:39→21:33)
[2018-10-16] MEDS: valACYclovir 500 MG TAB PO ×3 (08:39→21:33)
[2018-10-16] MEDS: FERROUS SULFATE (EC) 325 MG TAB PO ×3 (08:39→21:34)
[2018-10-16] MEDS: FAMOTIDINE 20 MG TAB PO ×2 (08:40→21:31)
[2018-10-16] MEDS: ESCITALOPRAM 10 MG TAB PO (08:40)
[2018-10-16] MEDS: LORAZEPAM 1 MG TAB PO ×2 (08:41→18:26)
[2018-10-16] MEDS: traMADol 50 MG TAB PO ×2 (08:41→21:32)
[2018-10-16] MEDS: SUCRALFATE (100 MG/ML) 10ML CUP PO ×4 (08:45→21:32)
[2018-10-16] MEDS ORDERED: ASPIRIN 81 MG TAB PO (09:00)
[2018-10-16] MEDS ORDERED: TIOTROPIUM 18 MCG CAPSULE INHA DEV INH (12:00)
[2018-10-16] MEDS: ONDANSETRON (ODT) 4 MG TAB ODT (12:20)
[2018-10-16] MEDS: MAGNESIUM SULFATE 2 GM/50 ML 50 ML IVPB (12:28)
[2018-10-16] MEDS: CALAMINE 170 ML LOT TOP ×2 (12:34→18:27)
[2018-10-16] MEDS: CLOPIDOGREL 75 MG TAB PO (14:18)
[2018-10-16] MEDS: MONTELUKAST 10 MG TAB PO (14:18)
[2018-10-16] MEDS: ARFORMOTEROL TARTRATE 15MCG/2 ML AMP NEB (20:09)
[2018-10-16] MEDS: TIOTROPIUM 18 MCG CAPSULE INHA DEV INH (21:30)
[2018-10-16] MEDS: MAGNESIUM OXIDE 400 MG TAB PO (21:32)
[2018-10-16] MEDS: DOXYCYCLINE 100 MG TAB PO (21:34)
[2018-10-17] MEDS: ALBUTEROL/IPRATROPIUM (NEB) 3 ML AMP HHN ×2 (01:27→06:28)
[2018-10-17] MEDS: PANTOPRAZOLE (EC) 40 MG TAB PO (06:00)
[2018-10-17] MEDS: BUDESONIDE (NEB) 0.5MG/2ML AMP HHN (07:53)
[2018-10-17] MEDS: ARFORMOTEROL TARTRATE 15MCG/2 ML AMP NEB (07:53)
[2018-10-17] MEDS: IPRATROPIUM (NEB) 0.5 MG/2.5 ML AMP HHN ×3 (07:56→15:07)
[2018-10-17] MEDS: SUCRALFATE (100 MG/ML) 10ML CUP PO ×4 (08:08→16:01)
[2018-10-17] MEDS: TIOTROPIUM 18 MCG CAPSULE INHA DEV INH ×2 (08:09→09:45)
[2018-10-17] MEDS: MONTELUKAST 10 MG TAB PO (08:09)
[2018-10-17] MEDS: DOXYCYCLINE 100 MG TAB PO (08:09)
[2018-10-17] MEDS: valACYclovir 500 MG TAB PO ×2 (08:09→12:42)
[2018-10-17] MEDS: ONDANSETRON (ODT) 4 MG TAB ODT ×2 (08:09→15:02)
[2018-10-17] MEDS: FAMOTIDINE 20 MG TAB PO (08:10)
[2018-10-17] MEDS: ESCITALOPRAM 10 MG TAB PO (08:10)
[2018-10-17] MEDS: CLOPIDOGREL 75 MG TAB PO (08:10)
[2018-10-17] MEDS: ENOXAPARIN 40 MG/0.4 ML SYG SC (08:12)
[2018-10-17] MEDS: FERROUS SULFATE (EC) 325 MG TAB PO ×2 (08:12→12:42)
[2018-10-17] MEDS: QUETIAPINE 25 MG TAB PO (08:12)
[2018-10-17] MEDS: MUPIROCIN 2% 22 GM OINT TOP (08:13)
[2018-10-17] MEDS: traMADol 50 MG TAB PO (08:16)
[2018-10-17] MEDS ORDERED: CLOPIDOGREL 75 MG TAB PO (09:00)
[2018-10-17] MEDS ORDERED: TIOTROPIUM 18 MCG CAPSULE INHA DEV INH (21:00)
== END 2018-10-17 18:20 | disposition home health service (06) | DRG 191 ==
LOC: 5EC 10-15 15:00 → E/R 15:40 → 5EC 10-13 05:19
PROC: 4A033R1 Measurement of Arterial Saturation, Peripheral, Percutaneous Approach (ICD-10-PCS; principal; 2018-10-15)
PROC: 0HBRXZZ Excision of Toe Nail, External Approach (ICD-10-PCS; 2018-10-16)
PROC: 0HBRXZZ Excision of Toe Nail, External Approach (ICD-10-PCS; 2018-10-16)
PROC: 0HBRXZZ Excision of Toe Nail, External Approach (ICD-10-PCS; 2018-10-16)
PROC: 0HBRXZZ Excision of Toe Nail, External Approach (ICD-10-PCS; 2018-10-16)
PROC: 0HBRXZZ Excision of Toe Nail, External Approach (ICD-10-PCS; 2018-10-16)
PROC: 0HBRXZZ Excision of Toe Nail, External Approach (ICD-10-PCS; 2018-10-16)
PROC: 0HBRXZZ Excision of Toe Nail, External Approach (ICD-10-PCS; 2018-10-16)
PROC: 0HBRXZZ Excision of Toe Nail, External Approach (ICD-10-PCS; 2018-10-16)
PROC: 0HBRXZZ Excision of Toe Nail, External Approach (ICD-10-PCS; 2018-10-16)
PROC: 0HBRXZZ Excision of Toe Nail, External Approach (ICD-10-PCS; 2018-10-16)
DX: J44.1 Chronic obstructive pulmonary disease with (acute) exacerbation (principal); E87.1 Hypo-osmolality and hyponatremia; L03.312 Cellulitis of back [any part except buttock and flank]; L03.311 Cellulitis of abdominal wall; F33.3 Major depressive disorder, recurrent, severe with psychotic symptoms; F41.9 Anxiety disorder, unspecified; B02.9 Zoster without complications; I10 Essential (primary) hypertension; D50.9 Iron deficiency anemia, unspecified; F17.208 Nicotine dependence, unspecified, with other nicotine-induced disorders; K29.70 Gastritis, unspecified, without bleeding; Z22.322 Carrier or suspected carrier of Methicillin resistant Staphylococcus aureus; B35.1 Tinea unguium; S90.31XA Contusion of right foot, initial encounter; Z79.82 Long term (current) use of aspirin; W22.8XXA Striking against or struck by other objects, initial encounter; Y92.129 Unspecified place in nursing home as the place of occurrence of the external cause
CPT/HCPCS: 36415; 36600; 71045; 73630; 73700; 80048; 80053; 82270; 82803; 83605; 83735; 84100; 84484; 85025; 87081; 93005; 94640; 94644; 94645; 94664; 96374; 97110; 97162; 99217; 99285-25

== ENCOUNTER 2018-10-18 10:43 | Emergency (ER) | payer OTHER ==
[2018-10-18 12:33] LABS: ADD MAN DIFF? NO
[2018-10-18 12:42] LABS: BASOPHILS % 0.2 % (0.0-2.0); HEMATOCRIT 29.5 % (37.0-47.0); HEMOGLOBIN 9.1 g/dl (12.0-16.0); LYMPHOCYTES % 40.4 % (15.0-51.0); MEAN CORPUSCULAR HEMOGLOBIN 26.3 pg (29.0-33.0); MEAN CORPUSCULAR HGB CONC 30.8 g/dl (32.0-37.0); MEAN CORPUSCULAR VOLUME 85.3 fl (82.0-101.0); MEAN PLATELET VOLUME 8.9 fl (7.4-10.4); MONOCYTE # 0.2 10^3/ul (0.3-0.9); MONOCYTES % 3.3 % (0.0-11.0); NEUTROPHIL # 2.7 10^3/ul (1.6-7.5); NEUTROPHILS % 55.5 % (39.0-77.0); PLATELET COUNT 461 10^3/UL (140-415); RED BLOOD COUNT 3.46 10^6/ul (4.20-5.40); RED CELL DISTRIBUTION WIDTH 16.1 % (11.5-14.5)
[2018-10-18 12:42] LABS: WHITE BLOOD COUNT 4.8 10^3/ul (4.8-10.8)
[2018-10-18] MEDS: METHYLPREDNISOLONE 125 MG INJ IV (12:51)
[2018-10-18 13:07] LABS: ANION GAP 6 (5-13); BLOOD UREA NITROGEN 10 mg/dl (7-20); CARBON DIOXIDE 33 mmol/L (21-31); CHLORIDE 98 mmol/L (97-110); CREATININE 0.36 mg/dl (0.44-1.00); Estimated GFR > 60 mL/min (>60); GLUCOSE 112 mg/dl (70-220); POTASSIUM 4.3 mmol/L (3.5-5.1); SODIUM 137 mmol/L (135-144)
[2018-10-18 13:19] LABS: TROPONIN-I < 0.012 ng/ml (0.000-0.120)
[2018-10-18] MEDS: ONDANSETRON 4 MG INJ IV (16:19)
[2018-10-18] MEDS: ALBUTEROL 0.5% (NEB) 2.5 MG/0.5 ML AMP INH (16:38)
[2018-10-18] MEDS: LORAZEPAM 2 MG INJ IV (18:38)
== END 2018-10-18 19:08 | disposition home or self-care (01) ==
LOC: E/R 10:43
DX: J44.1 Chronic obstructive pulmonary disease with (acute) exacerbation (principal); I10 Essential (primary) hypertension; F17.210 Nicotine dependence, cigarettes, uncomplicated; Z79.01 Long term (current) use of anticoagulants
CPT/HCPCS: 36415; 71045; 80048; 84484; 85025; 94644; 96374; 96375; 99284-25

== ENCOUNTER 2018-10-19 08:19 | Emergency (ER) | payer OTHER ==
[2018-10-19] MEDS ORDERED: ONDANSETRON (ODT) 4 MG TAB ODT (08:51)
[2018-10-19] MEDS: ONDANSETRON (ODT) 4 MG TAB ODT (08:53)
[2018-10-19] MEDS: CAPSAICIN 0.025% 60 GM CR TOP (09:30)
[2018-10-19] MEDS: ALBUTEROL 0.5% (NEB) 2.5 MG/0.5 ML AMP INH (09:38)
[2018-10-19] MEDS: IPRATROPIUM (NEB) 0.5 MG/2.5 ML AMP INH (09:38)
[2018-10-19] MEDS: traMADol 50 MG TAB PO (11:16)
== END 2018-10-19 12:15 | disposition home or self-care (01) ==
LOC: E/R 08:19
DX: B02.9 Zoster without complications (principal); I10 Essential (primary) hypertension; J44.9 Chronic obstructive pulmonary disease, unspecified; F41.9 Anxiety disorder, unspecified; Z87.891 Personal history of nicotine dependence
CPT/HCPCS: 94644; 99283-25